=== PATIENT | male | born 1940 | race Caucasian/White ===

== ENCOUNTER 2019-09-18 14:47 | Inpatient (IN) | payer OTHER, SELFPAY ==
[2019-09-18] VITALS (11 sets, daily range): BP systolic 109–118; BP diastolic 62–77; PULSE 61–71; RESP 14–20; TEMP 36.2–36.3; O2SAT 95–99; BMI 41.0; BMI 41.2
--- NOTE | ~2019-09-18 | XR_ITS ---
SMALL BOWEL SERIES ONLY INDICATION: GI bleed TECHNIQUE: Serial plain films and fluoroscopic spot films are performed following oral demonstration of thin barium. COMPARISON: CT dated 11/15/2010 FINDINGS: Barium was followed sequentially through the small bowel. There is a large amount of retain ed debris in the stomach. No obstruction. The mucosal pattern is unremarkable. No evidence for stric ture, polyp, diverticula or obstruction of flow of contrast. Transit time is normal. IMPRESSION: 1: Normal small bowel series. Reviewed, dictated and finalized at location A. E STRAIGHTENER
--- NOTE | ~2019-09-18 | XR_ITS ---
EXAMINATION: XR chest 2V DATE: 09/18/2019 15:33 INDICATION: Intermittent chest pain. Dizziness. TECHNIQUE: Frontal and lateral views of the chest were obtained on 3 radiographs. COMPARISON: Chest 2 views 01/09/2017 FINDINGS: Calcified left lung nodules and calcified left hilar and mediastinal lymph nodes are consis tent with old granulomatous disease. No pleural effusion or pneumothorax. Cardiomegaly is noted. Ther e is a left chest pacer with single lead in right ventricle. IMPRESSION: 1. Cardiomegaly. Reviewed, dictated and finalized at location B. NIC PREPARATION TECHNICIAN IMPRESSION: 1. Cardiomegaly.
--- NOTE | 2019-09-18 15:06 | ECG_ITS ---
Measurements Intervals [place] Rate: 60 P: FL: 0 QRS: -62 QRSD: 178 T: 86 QT: 482 QTc: 483 Interpretive Statements ELECTRONIC VENTRICULAR PACEMAKER BASELINE ARTIFACT- I, III, AVL NO FURTHER INTERPRETATION IS POSSIBLE ATYPICAL ECG Electronically Signed On 09-18-2019 16:00:53 PUBLIC ADDRESS TECHNICIAN by Karthik Hodges D.O.
[2019-09-18 15:25] LABS: Basophils Percent Auto 0.4 % (0.2-1.2); Eosinophils Absolute Auto 0.1 K/mm3 (0-0.3); Eosinophils Percent Auto 0.9 % (0-4.4); Hematocrit 24.3 % (42.0-52.0); Hemoglobin 7.9 g/dL (14.0-18.0); Immature Granulocyte Absolute 0.09 K/mm3 (0.00-0.031); Immature Granulocyte Percent A 0.9 % (0-0.5); Lymphocytes Absolute Auto 0.75 K/mm3 (0.9-3.2); Lymphocytes Percent Auto 7.6 % (18.3-44.2); Mean Corpuscular HGB Conc 32.5 g/dl (32-36); Mean Corpuscular Hemoglobin 32.2 pg (26-34); Mean Corpuscular Volume 99.2 fl (80-100); Mean Platelet Volume 11.4 fl (7.4-10.4); Monocytes Percent Auto 10.2 % (2.6-8.5); Neutrophils Absolute Auto 7.9 K/mm3 (1.3-6.7); Platelet Count Result 143 k/mm3 (150-375); Red Blood Count 2.45 M/mm3 (4.6-6.20); Red Cell Distribution Width 14.9 % (11.5-14.5); White Blood Count 9.9 K/mm3 (4.5-10.0)
[2019-09-18 15:38] LABS: INR 1.6; Prothrombin Time 18.4 Seconds (11.1-14.7)
[2019-09-18 15:39] LABS: Alanine Aminotransferase 16 U/L (4-50); Albumin Level 3.6 g/dL (3.5-5.1); Alkaline Phosphatase 66 U/L (38-126); Aspartate Amino Transferase 26 U/L (17-59); Bilirubin,Total 0.4 mg/dL (0.2-1.3); Blood Urea Nitrogen 34 mg/dL (9-20); Calcium 8.4 mg/dL (8.4-10.2); Carbon Dioxide 23 mmol/L (22-30); Chloride 100 mmol/L (98-107); Estimated CRCL calculation 79 ml/min; Estimated Glomerular Filt Rate > 60; Glucose 96 mg/dL (75-110); Lipase 98 U/L (23-300); Partial Thromboplastin Time 44.6 SECONDS (22.3-36.8); Potassium 4.4 mmol/L (3.4-5.0); Sodium 132 mmol/L (137-145)
[2019-09-18 15:50] LABS: NT Pro B Type Natriuretic Pept 451 PG/ML (5-100); Troponin I 0.014 ng/mL (0.000-0.034)
--- NOTE | 2019-09-18 16:32 | ED.GENADULT ---
HPI - General Adult General Chief complaint: Chest Pain Stated complaint: CP Time Seen by Provider: 09/18/19 14:59 Source: patient, family and old records reviewed Mode of arrival: ambulatory Limitations: no limitations History of Present Illness HPI narrative: Patient is a 79-year-old male who presents with for evaluation of having fatigue and shortness of breath over the last month that is progressively worsened and noting that over the last 2 days he has had heaviness of the chest that occurs with activity and improves with rest patient with cardiac history followed by cardiology at [facility] patient also notes that he has had a GI bleed in the past patient denies any fever chills nausea vomiting or URI symptoms aside from some light rhinorrhea which she attributes to allergies as does his . On arrival patient denying any pain. Patient has not taken anything for his symptoms. Related Data Allergies Allergy/AdvReac Type Severity Reaction Status Date / Time Penicillins Allergy Unknown Verified 09/17/18 08:08 Review of Systems Review of Systems: Narrative: CONSTITUTIONAL: Denies fever, chills, or sweats. Positive for fatigue EYES: Denies redness, or discharge. ENT: Denies rhinorrhea, congestion, sore throat, or otalgia. CARDIOVASCULAR: Denies chest pain. Positive for edema RESPIRATORY: Denies cough or dyspnea. GASTROINTESTINAL: Denies abdominal pain, nausea, vomiting, or diarrhea. Denies rectal bleeding or melena GENITOURINARY: Denies dysuria or hematuria. SKIN: Denies rash or wounds MUSCULOSKELETAL: Denies back pain, joint pain, or myalgia. NEUROLOGIC: Denies headache, dizziness, or weakness. [facility] Past Medical History Medical History (Updated 09/18/19 @ 16:47 by Jean Claude Woods PA-C) Hypertension Surgical History Surgical History Hx of CABG Family History Family History Sibling Cerebrovascular accident Malignant neoplasm of prostate Acute myocardial infarction Family history of malignant neoplasm of brain Patient's sister is Patient's brother is Mother Family history of diabetes mellitus in first degree relative Family history of congestive heart failure Patient's mother is Father Acute myocardial infarction Patient's father is Social History Social History Smoking status: Never smoker Alcohol intake: never Exam Narrative: Exam Narrative: GENERAL: Well-appearing, obese, and in no acute distress. HEAD: Normocephalic, atraumatic. EYES: PERRLA and EOMI. ENT: Nares clear, no rhinorrhea or epistaxis. Mucous membranes moist. Oropharynx without tonsillar hypertrophy exudate or other lesions. CHEST: Clear to auscultation. No respiratory distress. No wheezes rales or rhonchi HEART: Regular rate and rhythm. Patient with murmur. Normal peripheral pulses. ABDOMEN: Soft, nontender, nondistended. Guaiac positive EXTREMITIES: Normal range of motion. No edema. SKIN: Warm, dry, no rash. NEURO: No focal deficits. Alert and oriented x3. PSYCH: Normal mood and affect. Course Course Emergency Course: Patient in the room at this time in no distress agreeing to stay in hospital aware of case findings treatment plan and diagnosis Consultations Consultation #1: Discussed case with hospitalist Marlena who is agreed to accept the patient Discussed case with Dr. Gar key operator who will consult on patient would like the patient to receive 1 unit of blood Discussed case with Sujey Leonard nurse practitioner with cardiology who agrees to consult on patient Vital Signs Vital signs: Vital Signs Pulse Rate 63 09/18/19 14:49 Respiratory Rate 18 09/18/19 14:49 Blood Pressure 114/67 09/18/19 14:49 Pulse Oximetry 95 09/18/19 14:49 Pulse
--- NOTE | 2019-09-18 18:59 | ADMGEN ---
This patient, Thee Amanda, was admitted to IMU Room 206-02. Patient/family oriented to hospital policies and general routines including ID bracelet, bed and alarms, visiting hours, pain management, procedures, bathroom and other care routines, personal items, smoking policy, room service/diet, and visiting hours. Valuables list has been completed. Information on how to activate the Rapid Response Team has been discussed. Patient/Family are encouraged to report perceived risks to care and to ask questions if they do not understand what they are told or what they should do.
[2019-09-18 19:48] LABS: Troponin I 0.016 ng/mL (0.000-0.034)
[2019-09-18] MEDS: PANTOPRAZOLE SODIUM IV 40 MG VIAL IV PUSH (20:25)
[2019-09-18 21:37] LABS: Troponin I 0.018 ng/mL (0.000-0.034)
[2019-09-18] MEDS: SODIUM CHLORIDE 0.9% IV 250 ML 30 ML IV CONT (22:06)
[2019-09-18] MEDS: TUBING, BLOOD PLUM PUMP TUBING 1 EACH XX (22:06)
[2019-09-19] VITALS (23 sets, daily range): BP systolic 97–124; BP diastolic 59–70; PULSE 61–71; RESP 14–20; TEMP 36–36.6; O2SAT 93–99
[2019-09-19 04:51] LABS: Basophils Percent Auto 0.3 % (0.2-1.2); Eosinophils Absolute Auto 0.3 K/mm3 (0-0.3); Eosinophils Percent Auto 4.2 % (0-4.4); Hematocrit 24.1 % (42.0-52.0); Hemoglobin 7.7 g/dL (14.0-18.0); Immature Granulocyte Absolute 0.05 K/mm3 (0.00-0.031); Immature Granulocyte Percent A 0.8 % (0-0.5); Lymphocytes Absolute Auto 0.79 K/mm3 (0.9-3.2); Lymphocytes Percent Auto 12.4 % (18.3-44.2); Mean Corpuscular Hemoglobin 31.2 pg (26-34); Mean Corpuscular Volume 97.6 fl (80-100); Monocytes Absolute Auto 0.7 K/mm3 (0.1-0.6); Neutrophils Absolute Auto 4.6 K/mm3 (1.3-6.7); Neutrophils Percent Auto 71.3 % (45.5-73.1); Platelet Count Result 131 k/mm3 (150-375); Red Blood Count 2.47 M/mm3 (4.6-6.20); Red Cell Distribution Width 15.6 % (11.5-14.5); White Blood Count 6.4 K/mm3 (4.5-10.0)
[2019-09-19 05:05] LABS: Blood Urea Nitrogen 24 mg/dL (9-20); Calcium 8.4 mg/dL (8.4-10.2); Carbon Dioxide 24 mmol/L (22-30); Chloride 101 mmol/L (98-107); Estimated CRCL calculation 99 ml/min; Estimated Glomerular Filt Rate > 60; Glucose 88 mg/dL (75-110); Potassium 3.9 mmol/L (3.4-5.0); Sodium 132 mmol/L (137-145)
--- NOTE | 2019-09-19 08:27 | WPDGICN ---
Assessment and Plan Additional Plan This is a 79-year-old white male patient I am asked to see for GI bleeding. Patient in usual state of health till the last 2-3 days when he began to have somewhat lightheadedness. He became more weak. He noticed dark stools. He denies abdominal pain. Denies any obvious blood in his stools but states they became blackish. He began to have chest pain in this prompted him to go to the emergency room. In the ER he was noted to have a low hemoglobin and Hemoccult-positive stools. Past medical history is significant for atherosclerotic heart disease. He has a history of atrial fibrillation. He is on chronic anticoagulation with Xarelto. He has stable congestive heart failure. Last colonoscopy was approximately 4 years ago. Family history is noncontributory. There is no colon or rectal disease. Current medications include Lasix 20 mg p.o. daily. Lisinopril 20 mg p.o. daily. Metoprolol 20 mg p.o. daily. Xarelto. Rosuvastatin. Terazosin. He has no stated drug allergies. Physical exam reveals him to be alert periods comfortable at rest. HEENT exam unremarkable. He is anicteric. Lungs are clear to auscultation and percussion. Heart is without murmur or extra sounds. Abdominal exam somewhat obese. Bowel sounds are present. Soft nontender with no organomegaly. Stool was found to be Hemoccult-positive in the emergency room. Laboratory tests reveal hemoglobin 7.9 in the emergency room. After transfusion of 1 unit of PRBCs. Hemoglobin 7.7 this morning. Impression 1. GI blood loss anemia. Patient has melena by description. Suspicious for upper GI bleeding worsened by anticoagulation. No active bleeding at the present. 2. Melena. This suggest upper GI blood loss. Ulcer disease is suspected. 3. Xarelto anticoagulation. 4. Atrial fibrillation. 5. Congestive heart failure. 6. Obesity. Plan is to slowly transfuse patient to a stable hemoglobin. Xarelto and other anticoagulation will be held. Hemoglobin will be monitored. Patient will be started on Protonix. Plan for an EGD. Anticipate performing EGD on Saturday. After Xarelto has been held. And hemoglobin stabilized with transfusion. GI Consult Note Consult date/time: 09/19/19 08:27 HPI: Thee Lynn Amanda is a 79 year old male [facility] Past Medical History Medical History (Updated 09/18/19 @ 16:47 by Jean Claude Woods PA-C) Hypertension Surgical History Surgical History Hx of CABG Family History Family History Sibling Cerebrovascular accident Malignant neoplasm of prostate Acute myocardial infarction Family history of malignant neoplasm of brain Patient's sister is Patient's brother is Mother Family history of diabetes mellitus in first degree relative Family history of congestive heart failure Patient's mother is Father Acute myocardial infarction Patient's father is Social History Social History Smoking status: Never smoker Alcohol intake: never Substance use: never Substance use type: does not use Spiritual care concerns: No Agree to blood products: Yes Meds Home Medications and Allergies Home Medications Medication Instructions Recorded Confirmed Type furosemide 20 mg PO DAILY 09/18/19 09/18/19 History lisinopril 20 mg PO DAILY 09/18/19 09/18/19 History metoprolol succinate 25 mg PO DAILY 09/18/19 09/18/19 History rivaroxaban [Xarelto] 20 mg PO HS 09/18/19 09/18/19 History rosuvastatin 40 mg PO DAILY 09/18/19 09/18/19 History terazosin 10 mg PO DAILY 09/18/19 09/18/19 History tolterodine 2 mg PO Q12H 09/19/19 09/19/19 History Allergies Allergy/AdvReac Type Severity Reaction Status Date / Time Penicillins Allergy Unknown Verified 09/17/18 08:08
[2019-09-19] MEDS: FUROSEMIDE 20 MG TABLET PO (10:00)
[2019-09-19] MEDS: ROSUVASTATIN 10 MG TABLET 40 MG PO (10:00)
[2019-09-19] MEDS: TERAZOSIN HCL 5 MG CAPSULE 10 MG PO (10:01)
[2019-09-19] MEDS: lisinopriL 20 MG TABLET PO (10:01)
[2019-09-19] MEDS: PANTOPRAZOLE SODIUM IV 40 MG VIAL IV PUSH ×2 (10:02→22:28)
[2019-09-19] MEDS: TOLTERODINE TARTRATE 2 MG TABLET PO ×2 (10:08→22:34)
[2019-09-19] MEDS: METOPROLOL SUCCINATE EXT REL 25 MG TABCR PO (10:08)
[2019-09-19] MEDS: SODIUM CHLORIDE 0.9% IV 250 ML 30 ML IV CONT (10:52)
[2019-09-19] MEDS: TUBING, BLOOD PLUM PUMP TUBING 1 EACH XX (10:52)
--- NOTE | 2019-09-19 12:50 | PM.CNCAR ---
Assessment and Plan Assessment and plan (1) Cardiomyopathy: Code(s): I42.9 - Cardiomyopathy, unspecified Status: Acute Assessment and Plan: EF 45 50%. Compensated. Will order 2D echocardiogram Doppler (2) Pacemaker: Code(s): Z95.0 - Presence of cardiac pacemaker Status: Acute Assessment and Plan: Predominantly V paced (3) Chronic atrial flutter: Code(s): I48.92 - Unspecified atrial flutter Status: Acute Assessment and Plan: Previously on anticoagulation. Will hold Xarelto for now. GI workup in progress. (4) Chronic anticoagulation: Code(s): Z79.01 - lobsterman (current) use of anticoagulants Status: Acute Assessment and Plan: As above, hold Xarelto (5) Coronary artery disease: Code(s): I25.10 - Atherosclerotic heart disease of [place] coronary artery without angina pectoris Status: Acute Assessment and Plan: Status post complex PCI to the LAD with residual PDA disease. Certainly his chest pain and shortness of breath sound anginal but worsened probably by anemia (6) Chest pain: Code(s): R07.9 - Chest pain, unspecified Status: Acute Assessment and Plan: As detailed above, sounds anginal but underlying trigger is likely severe anemia/GI bleed. Obviously if he has continued symptoms despite transfusion and GI evaluation, ischemic workup can be performed as an outpatient (7) Gastrointestinal bleed: Code(s): K92.2 - Gastrointestinal hemorrhage, unspecified Status: Acute Assessment and Plan: Melanotic stools. Likely upper source. GI following. Scope Saturday (8) Anemia: Code(s): D64.9 - Anemia, unspecified Status: Acute Assessment and Plan: Currently getting transfused. Diuresis as needed after transfusions History of Present Illness History of Present Illness Consult date/time: 09/19/19 12:50 Requesting physician: Jean Claude Woods PA-C Consult reason: chest pain Reason For Visit: GI Bleed/Anemia/Chest Pain Narrative: Date of service: 09/19/2019 History patient is a 79 normal male patient of Dr. Allan's to has a history of chronic atrial flutter, Biotronik pacemaker implantation for sick sinus syndrome and chronic bradycardia, chronic anticoagulation, coronary disease with LAD stent placement in January 2016 with some residual PDA disease which is being treated medically. He also has a mild cardiomyopathy with ejection fraction 45-50%. He presented to the hospital because of some worsening shortness of breath, chest tightness as well as lightheadedness. Symptoms feel like they did prior to his stent placement. He states that these symptoms occurred about 2 days ago. He would climb a flight of stairs and have the chest tightness which would last for about 15-20 minutes at a time. It did not radiate into his arm back neck or jaw. Again he did have some associated shortness of breath. He has had no syncope, paroxysmal nocturnal dyspnea, orthopnea or palpitations. He has had some ankle edema. Upon presentation to the emergency department he was noted being AV paced rhythm. Troponins have been negative but his hemoglobin has been found to be low at a level of 7.7. He has received 1 unit of blood without significant improvement. He states that he has been having black stools for the past couple of days also. He is seen by Dr. Horner with a plan for upper endoscopy on Saturday Review of Systems Review of Systems: All systems reviewed & are unremarkable except as noted in HPI and below Constitutional: Constitutional: Reports weakness Eyes: Eyes: Denies blurry vision ENT: Reports Normal hearing present and Denies epistaxis Cardiovascular: Cardiovascular: Reports chest pain and Reports leg edema Respiratory: Respiratory: Reports dyspnea on exertion Gastrointestinal: Gastrointestinal: Reports melena Genitourinary: Genitourinary: Denies hematuria Musculoskeletal: M
--- NOTE | 2019-09-19 15:12 | P.PNIM_ITS ---
Progress Note: A&P Assessment and Plan (1) Gastrointestinal bleed: Qualifiers: GI bleed type/associated pathology: unspecified gastrointestinal hemorrhage type Qualified Code(s): K92.2 - Gastrointestinal hemorrhage, unspecified Code(s): K92.2 - Gastrointestinal hemorrhage, unspecified Status: Acute Assessment and Plan: * UGI vs small bowel vs right colon source * continue to hold Xarelto * F/u h/h * EGD planned for 09/21. (2) Anemia: Qualifiers: Other causes of anemia: acute posthemorrhagic Anemia type: other cause Qualified Code(s): D62 - Acute posthemorrhagic anemia Code(s): D64.9 - Anemia, unspecified Status: Acute Assessment and Plan: * continue to monitor * transfuse as needed for hgb below 7 (3) Chest pain: Qualifiers: Chest pain type: unspecified Qualified Code(s): R07.9 - Chest pain, unspecified Code(s): R07.9 - Chest pain, unspecified Status: Acute Assessment and Plan: * likely due to acute UGI bleed * resolved (4) Coronary artery disease: Qualifiers: Coronary Disease-Associated Artery/Lesion type: [place] artery [place] vs. transplanted heart: [place] heart Associated angina: without angina Qualified Code(s): I25.10 - Atherosclerotic heart disease of [place] coronary artery without angina pectoris Code(s): I25.10 - Atherosclerotic heart disease of [place] coronary artery without angina pectoris Status: Acute Assessment and Plan: * currently w/o sx's (5) Chronic atrial flutter: Code(s): I48.92 - Unspecified atrial flutter Status: Acute Assessment and Plan: * rate controlled * no anticoagulation due to GI bleed (6) Pacemaker: Code(s): Z95.0 - Presence of cardiac pacemaker Status: Acute Assessment and Plan: * pacing (7) Chronic anticoagulation: Code(s): Z79.01 - snf (current) use of anticoagulants Status: Acute Assessment and Plan: * held due to GI bleed (8) Sick sinus syndrome: Code(s): I49.5 - Sick sinus syndrome Status: Acute Assessment and Plan: * pacer functioning (9) Cardiomyopathy: Qualifiers: Cardiomyopathy type: ischemic Qualified Code(s): I25.5 - Ischemic cardiomyopathy Code(s): I42.9 - Cardiomyopathy, unspecified Status: Acute Assessment and Plan: * Continue regimen Subjective Date/time seen: 09/19/19 15:12 Interval history: 79 y/o male on chronic Xarelto therapy for atrial flutter was admitted 09/18 due to melena and anemia and chest pain. Feels much better today. No chest pain or sob. Tolerating clear liquids. Review of Systems 2 Review of Systems: All systems reviewed & are unremarkable except as noted in HPI and below Exam Narrative: Exam Narrative: HEENT: EOMI, PERRL, pharyngeal mucosa pink and intact NECK: No JVD CHEST: Clear to auscultation. Normal effort. HEART: NL S1/S2, regular, no murmur ABDOMEN: BS+, soft, nontender, no mass, no bruits EXTREMITIES: No cyanosis, edema, or clubbing NEUROLOGIC: CN intact and symmetric to inspection. MUSCULOSKELETAL: Tone and strength symmetric. PSYCH: Alert. Oriented to person, place, and time. Objective Data Vital Signs Vital Signs: Vital Signs - 24 hr 09/18/19 17:53 09/18/19 18:46 09/18/19 19:15 Temperature 97.3 F L Pulse Rate 64 64 71 Respiratory Rate 16 1
--- NOTE | 2019-09-19 15:12 | PM.IMPN ---
Progress Note: A&P Assessment and Plan (1) Gastrointestinal bleed: Qualifiers: GI bleed type/associated pathology: unspecified gastrointestinal hemorrhage type Qualified Code(s): K92.2 - Gastrointestinal hemorrhage, unspecified Code(s): K92.2 - Gastrointestinal hemorrhage, unspecified Status: Acute Assessment and Plan: UGI vs small bowel vs right colon source continue to hold Xarelto F/u h/h EGD planned for 09/21. (2) Anemia: Qualifiers: Other causes of anemia: acute posthemorrhagic Anemia type: other cause Qualified Code(s): D62 - Acute posthemorrhagic anemia Code(s): D64.9 - Anemia, unspecified Status: Acute Assessment and Plan: continue to monitor transfuse as needed for hgb below 7 (3) Chest pain: Qualifiers: Chest pain type: unspecified Qualified Code(s): R07.9 - Chest pain, unspecified Code(s): R07.9 - Chest pain, unspecified Status: Acute Assessment and Plan: likely due to acute UGI bleed resolved (4) Coronary artery disease: Qualifiers: Coronary Disease-Associated Artery/Lesion type: [place] artery [place] vs. transplanted heart: [place] heart Associated angina: without angina Qualified Code(s): I25.10 - Atherosclerotic heart disease of [place] coronary artery without angina pectoris Code(s): I25.10 - Atherosclerotic heart disease of [place] coronary artery without angina pectoris Status: Acute Assessment and Plan: currently w/o sx's (5) Chronic atrial flutter: Code(s): I48.92 - Unspecified atrial flutter Status: Acute Assessment and Plan: rate controlled no anticoagulation due to GI bleed (6) Pacemaker: Code(s): Z95.0 - Presence of cardiac pacemaker Status: Acute Assessment and Plan: pacing (7) Chronic anticoagulation: Code(s): Z79.01 - extermination inspector (current) use of anticoagulants Status: Acute Assessment and Plan: held due to GI bleed (8) Sick sinus syndrome: Code(s): I49.5 - Sick sinus syndrome Status: Acute Assessment and Plan: pacer functioning (9) Cardiomyopathy: Qualifiers: Cardiomyopathy type: ischemic Qualified Code(s): I25.5 - Ischemic cardiomyopathy Code(s): I42.9 - Cardiomyopathy, unspecified Status: Acute Assessment and Plan: Continue regimen Subjective Date/time seen: 09/19/19 15:12 Interval history: 79 y/o male on chronic Xarelto therapy for atrial flutter was admitted 09/18 due to melena and anemia and chest pain. Feels much better today. No chest pain or sob. Tolerating clear liquids. Review of Systems Review of Systems: All systems reviewed & are unremarkable except as noted in HPI and below Exam Narrative: Exam Narrative: HEENT: EOMI, PERRL, pharyngeal mucosa pink and intact NECK: No JVD CHEST: Clear to auscultation. Normal effort. HEART: NL S1/S2, regular, no murmur ABDOMEN: BS+, soft, nontender, no mass, no bruits EXTREMITIES: No cyanosis, edema, or clubbing NEUROLOGIC: CN intact and symmetric to inspection. MUSCULOSKELETAL: Tone and strength symmetric. PSYCH: Alert. Oriented to person, place, and time. Objective Data Vital Signs Vital Signs: Vital Signs - 24 hr 09/18/19 17:53 09/18/19 18:46 09/18/19 19:15 Temperature 97.3 F L Pulse Rate 64 64 71 Respiratory Rate 16 16 20 Blood Pressure 109/72 111/77 118/72 Pulse Oximetry 96 99 09/18/19 20:00 09/18/19 21:57 09/18/19 22:00 Temperature 97.3 F L Pulse Rate 63 62 63 Respiratory Rate 16 Blood Pressure 113/66 Pulse Oximetry 97 09/18/19 22:14 09/18/19 22:45 09/18/19 23:14 Temperature 97.4 F L 97.1 F L Pulse Rate 62 62 61 Respiratory Rate 14 16 16 Blood Pressure 117/62 113/69 Pulse Oximetry 97 95 99 09/19/19 00:00 09/19/19 00:14 09/19/19 01:47 Temperature 97.2 F L Pulse Rate 63 62 63 Respiratory Rate 20 14 Blood Pressure 112
--- NOTE | 2019-09-19 16:05 | HP_ITS ---
DATE OF SERVICE: 09/19/2019 TIME: 0530. CHIEF COMPLAINT: Chest pain. HISTORY OF PRESENT ILLNESS: The patient is a pleasant 79-year-old male with a past medical history of multivessel coronary artery disease, chronic anticoagulation due to atrial fibrillation, and chronic anemia, who presented to the ER with chest pain, intermittent shortness of breath, and dizziness. Source of information is past medical records, ER records, and the patient who is a fair to poor historian. The patient has been having fatigue and shortness of breath intermittently over the last month. His symptoms have progressively worsened, but are exacerbated by exertion. He reports that he had upper chest heaviness and pressure when climbing the 6 or so stairs to enter his house in the last 2 days. The discomfort is described as a heaviness and is moderate in intensity. The symptoms usually improve with rest. He denies any palpitations. He has not noticed any lower extremity swelling or orthopnea. He had his last bowel movement 2 days ago and it was black in color, consistent with his prior history of GI bleeds. His last colonoscopy was in 2016 performed for cancer screening and demonstrated an ascending colon polyp, transverse colon polyp, and diverticulosis and internal hemorrhoids. He has had a colonoscopy in 2012 and that was negative for polyps. The patient denies any heartburn symptoms, but has been having a lot of belching and what sounds like dyspepsia. He is not usually on PPI therapy at home. He denies any recent NSAID use. He has not had any fevers, chills, or upper respiratory symptoms aside from some rhinorrhea. He has not had any recurrent symptoms since he was admitted to the hospital. He did receive 1 unit of blood transfusion when he arrived to the intermediate unit for a hemoglobin of 7.9. According to the patient's past labs, his baseline hemoglobin is around 10. The patient reports chronic urinary incontinence, but denies any changes in urinary frequency or dysuria. The patient's stool was reportedly guaiac-positive in the ER. REVIEW OF SYSTEMS: Except as documented, all systems reviewed and are negative. PAST MEDICAL HISTORY: 1. Multivessel coronary artery disease with last cardiac catheterization in January 2017 demonstrating heavily calcified coronary arteries with diffuse disease, 95% stenosis, proximal LAD with 60% stenosis of the mid and distal LAD and mid circumflex and 67% stenosis of posterior descending artery with left ventricular dysfunction with severe anterolateral and apical hypokinesis with EF of 40% to 45% with 4+ mitral valve regurgitation, thought may be catheter-induced with recommended arthrectomy and stenting for which the patient was evaluated at [facility] as outpatient. 2. Chronic atrial fibrillation, on chronic anticoagulation with Xarelto. History of cardiac ablation in December 2009 and in 2006. 3. Mild ischemic cardiomyopathy with EF as discussed above. 4. Obstructive sleep apnea, with home CPAP use. 5. Hyperlipidemia. 6. Pacemaker implantation due to bradycardia. 7. Colonoscopy with polypectomy as discussed above. 8. Prostate cancer, status post prostate resection with chronic urinary incontinence. Treated with 38 radiation treatments since 2010. 9. History of thrombocytopenia. 10. Eczema. 11. Varicose veins of bilateral lower extremities. 12. Left total knee arthroplasty, March 2010. 13. Essential hypertension. 14. Abdominal hernia without surgical repair. 15. Right total knee arthroplasty, June 2010. 16. Tonsillectomy in 1999. 17. Bilateral cataract extraction and left eye laser surgery. SOCIAL HISTORY: The patient lives with his of over 40 years. The patient has 3 biologic children. One was killed in a motor vehicle accident. The
[2019-09-19 16:11] LABS: Hematocrit 26.9 % (42.0-52.0); Hemoglobin 8.8 g/dL (14.0-18.0)
[2019-09-20] VITALS (10 sets, daily range): BP systolic 95–106; BP diastolic 60–67; PULSE 61–80; RESP 14–20; TEMP 36.2–36.8; O2SAT 94–99
--- NOTE | 2019-09-20 | ECHO_ITS ---
Patient Info Name: Thee Amanda Age: 79 years : 1940 Gender: Male Ht: 68 in Wt: 270 lbs BSA: 2.48 m2 HR: 64 bpm BP: 128 / 67 mmHg Heart Rhythm: Paced Technical Quality: Good Exam Date: 09/20/2019 9:35 AM Exam Location: [facility] Patient Status: Inpatient Admit Date: 09/19/2019 Staff Ordering Physician: Ethan Spicer MD Carpenter Helper Maintenance: Bethany Salinas RDCS Attending Provider: Miko Ford MD Referring Physician: Nayan LEON; Exam Type: CA echo dop color flow w con Study Info Complete two-dimensional, color flow and Doppler transthoracic echocardiogram is performed. Summary 1. Left ventricular chamber dimension is mildly enlarged. 2. Left ventricular systolic function is normal, estimated at 55-60%. 3. There is mildly increased left ventricular wall thickness. 4. The left ventricular diastolic function is abnormal. 5. Right ventricular chamber dimension is severely enlarged. 6. Right atrial chamber dimension is severely enlarged. 7. Left atrial chamber dimension is severely enlarged. 8. There is moderate aortic valve regurgitation. 9. There is moderate aortic valve calcification. 10. There is mild mitral valve regurgitation. 11. There is mild to moderate tricuspid valve regurgitation. 12. Moderate pulmonary hypertension, estimated pulmonary arterial systolic pressure is 57 mmHg. Left Ventricle Left ventricular chamber dimension is mildly enlarged. Left ventricular systolic function is normal, estimated at 55-60%. There is mildly increased left ventricular wall thickness. The left ventricular diastolic function is abnormal. Right Ventricle Right ventricular chamber dimension is severely enlarged. Right ventricular systolic function is normal. Left Atria Left atrial chamber dimension is severely enlarged. Right Atria Right atrial chamber dimension is severely enlarged. Atrial Septum Intact interatrial septum visualized by color flow imaging. Aortic Valve The aortic valve is trileaflet. There is moderate aortic valve sclerosis. There is no aortic valve stenosis. There is moderate aortic valve regurgitation. There is moderate aortic valve calcification. Pulmonic Valve The pulmonic valve is normal. There is no pulmonic valve stenosis. There is trace pulmonic regurgitation. Mitral Valve The mitral valve has normal leaflets. There is no mitral valve stenosis. There is mild mitral valve regurgitation. Tricuspid Valve The tricuspid valve leaflets are normal. There is no significant tricuspid valve stenosis. There is mild to moderate tricuspid valve regurgitation. Moderate pulmonary hypertension, estimated pulmonary arterial systolic pressure is 57 mmHg. Pericardium/Pleural The pericardium appears normal. There is trivial pericardial effusion. Inferior Vena Cava Dilated inferior vena cava with >50% collapse upon inspiration consistent with elevated right atrial pressure, 15 mmHg. Aorta The aortic root size at the sinus of Valsalva is normal. Left Ventricular Outflow Tract Name Value Normal LVOT 2D LVOT Diameter 2.14 cm LVOT Doppler LVOT
[2019-09-20 05:16] LABS: Blood Urea Nitrogen 17 mg/dL (9-20); Calcium 8.4 mg/dL (8.4-10.2); Carbon Dioxide 28 mmol/L (22-30); Chloride 103 mmol/L (98-107); Estimated CRCL calculation 85 ml/min; Estimated Glomerular Filt Rate > 60; Glucose 95 mg/dL (75-110); Potassium 4.2 mmol/L (3.4-5.0); Sodium 138 mmol/L (137-145)
[2019-09-20 05:31] LABS: Hemoglobin 8.9 g/dL (14.0-18.0); Mean Corpuscular Hemoglobin 31.7 pg (26-34); Mean Corpuscular Volume 96.1 fl (80-100); Mean Platelet Volume 12.2 fl (7.4-10.4); Platelet Count Result 145 k/mm3 (150-375); Red Blood Count 2.81 M/mm3 (4.6-6.20); Red Cell Distribution Width 15.9 % (11.5-14.5); White Blood Count 7.2 K/mm3 (4.5-10.0)
--- NOTE | 2019-09-20 07:50 | WPDGIPROGNO ---
Progress Note: A&P Additional Plan pt comfortable this am no additional bleeding is evident, PE: alert, VSS anicteric, abdomen obese soft, and nontender5, Labs: Hgb 8.9, stable after 2 units PRBCs, Impression: 1. GI bleeding,. resultant blood loss anemia, etiology unclear, will plan for colonoscopy and EGD in am, 2. Xarleto anticoagluation, on hold. will hold till after gi bleeding evaluation, 3. ANABEL, 4. pacemaker, 5. atrial fib. 6.obesity. Plan for GI endoscopy in am, hold anticoagulation, continue PPI, follow hct. Subjective Date/time seen: 09/20/19 07:50 Objective Data Vital Signs Vital Signs: Vital Signs - 24 hr 09/19/19 08:00 09/19/19 08:01 09/19/19 10:00 Temperature 36.4 C L Pulse Rate 67 62 64 Respiratory Rate 14 Blood Pressure 124/70 Pulse Oximetry 93 09/19/19 10:08 09/19/19 11:08 09/19/19 11:23 Temperature 36.3 C L 36.1 C L Pulse Rate 64 62 61 Respiratory Rate 16 17 Blood Pressure 110/61 106/60 Pulse Oximetry 98 99 09/19/19 12:00 09/19/19 12:23 09/19/19 12:56 Temperature 36.2 C L 36.0 C L Pulse Rate 62 63 65 Respiratory Rate 16 16 Blood Pressure 101/61 113/64 Pulse Oximetry 96 98 09/19/19 13:23 09/19/19 14:00 09/19/19 16:00 Temperature 36.2 C L 36.3 C L Pulse Rate 67 71 64 Respiratory Rate 18 20 Blood Pressure 107/62 97/59 L Pulse Oximetry 97 96 09/19/19 18:00 09/19/19 19:41 09/19/19 20:00 Temperature 36.6 C Pulse Rate 65 62 62 Respiratory Rate 20 20 Blood Pressure 102/64 Pulse Oximetry 95 95 09/19/19 21:15 09/19/19 22:00 09/20/19 00:00 Temperature 36.8 C Pulse Rate 65 62 Respiratory Rate 20 Blood Pressure 106/64 Pulse Oximetry 96 95 09/20/19 02:00 09/20/19 03:10 09/20/19 04:00 Temperature 36.6 C Pulse Rate 65 80 80 Respiratory Rate 14 18 Blood Pressure 103/67 Pulse Oximetry 94 99 09/20/19 06:00 Temperature Pulse Rate 70 Respiratory Rate Blood Pressure Pulse Oximetry Intake/Output Intake/Output: Intake & Output 09/17/19 09/18/19 09/19/19 09/20/19 23:59 23:59 23:59 23:59 Intake Total 0 2267 Output Total 591 6149 582 Balance -329 -245 -160 Meds/Results Medications: Active Medications Generic Name Dose Route Start Last Admin Trade Name Freq PRN Reason Stop Dose Admin Furosemide 20 mg 09/19/19 09:00 09/19/19 10:00 Lasix Tablet PO 20 mg DAILY TRACY Administration Lisinopril 20 mg 09/19/19 09:00 09/19/19 10:01 Prinivil PO 20 mg DAILY TRACY Administration Metoprolol Succinate 25 mg 09/19/19 09:00 09/19/19 10:08 Toprol Xl PO 25 mg DAILY TRACY Administration Ondansetron HCl 4 mg 09/18/19 16:47 Zofran Inj IV PUSH Q4H PRN Nausea Pantoprazole Sodium 40 mg 09/19/19 09:00 09/19/19 22:28 Protonix Iv IV PUSH 40 mg Q12HR TRACY Administration Rosuvastatin Calcium 40 mg 09/19/19 09:00 09/19/19 10:00 Crestor PO 40 mg DAILY TRACY Administration Terazosin HCl 10 mg 09/19/19 09:00 09/19/19 10:01 Hytrin PO 10/19/19 09:01 10 mg DAILY TRACY Administration Tolterodine Tartrate 2 mg 09/19/19 09:00 09/19/19 22:34 Detrol PO 2 mg Q12HR TRACY Administration Radiology Results: ITS Impressions Chest X-Ray 09/18/19 15:36 IMPRESSION: 1. Cardiomegaly. Labs Labs: Laboratory Results - last 24 hr 09/18/19 09/19/19 09/20/19 16:48 16:07 04:23 WBC 7.2 RBC 2.81 L Hgb 8.8 L 8.9 L Hct 26.9 L 27.0 L MCV 96.1 MCH 31.7 MCHC 33.0 RDW 15.9 H Plt Count 145 L MPV 12.2 H Sodium Potassium Chloride Carbon Dioxide BUN Creatinine Estim Creat Clear Calc Estimated GFR Glucose Calcium Blood Type O Positive Antibody Screen Negative Crossmatch See Detail 09/20/19 04:23 WBC RBC Hgb Hct MCV MCH MCHC RDW Plt Count MPV Sodium 138 Potassium 4.2 Chloride 103 Carbon Dioxide 28 BUN 17 Creatinine 0.80 Es
[2019-09-20] MEDS: PANTOPRAZOLE SODIUM IV 40 MG VIAL IV PUSH ×2 (09:30→21:32)
[2019-09-20] MEDS: ROSUVASTATIN 10 MG TABLET 40 MG PO (09:30)
[2019-09-20] MEDS: TERAZOSIN HCL 5 MG CAPSULE 10 MG PO (09:33)
[2019-09-20] MEDS: TOLTERODINE TARTRATE 2 MG TABLET PO ×2 (09:33→21:33)
[2019-09-20] MEDS: lisinopriL 20 MG TABLET PO (09:33)
[2019-09-20] MEDS: FUROSEMIDE 20 MG TABLET PO (09:36)
[2019-09-20] MEDS: METOPROLOL SUCCINATE EXT REL 25 MG TABCR PO (09:36)
--- NOTE | 2019-09-20 09:39 | P.PNIM_ITS ---
Progress Note: A&P Assessment and Plan (1) Gastrointestinal bleed: Qualifiers: GI bleed type/associated pathology: unspecified gastrointestinal hemorrhage type Qualified Code(s): K92.2 - Gastrointestinal hemorrhage, unspecified Code(s): K92.2 - Gastrointestinal hemorrhage, unspecified Status: Acute Assessment and Plan: * UGI vs small bowel vs right colon source * continue to hold Xarelto * F/u h/h stable thus far * EGD planned for 09/21. (2) Anemia: Qualifiers: Anemia type: other cause Other causes of anemia: acute posthemorrhagic Qualified Code(s): D62 - Acute posthemorrhagic anemia Code(s): D64.9 - Anemia, unspecified Status: Acute Assessment and Plan: * continue to monitor * transfuse as needed for hgb below 7 (3) Chest pain: Qualifiers: Chest pain type: unspecified Qualified Code(s): R07.9 - Chest pain, unspecified Code(s): R07.9 - Chest pain, unspecified Status: Acute Assessment and Plan: * likely due to acute UGI bleed * resolved (4) Coronary artery disease: Qualifiers: Coronary Disease-Associated Artery/Lesion type: [place] artery [place] vs. transplanted heart: [place] heart Associated angina: without angina Qualified Code(s): I25.10 - Atherosclerotic heart disease of [place] coronary artery without angina pectoris Code(s): I25.10 - Atherosclerotic heart disease of [place] coronary artery without angina pectoris Status: Acute Assessment and Plan: * currently w/o sx's (5) Chronic atrial flutter: Code(s): I48.92 - Unspecified atrial flutter Status: Acute Assessment and Plan: * rate controlled * no anticoagulation due to GI bleed (6) Pacemaker: Code(s): Z95.0 - Presence of cardiac pacemaker Status: Acute Assessment and Plan: * pacing (7) Chronic anticoagulation: Code(s): 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 No new c/o. No chest pain or sob. Tolerating clear liquids. Review of Systems Review of Systems: All systems reviewed & are unremarkable except as noted in HPI and below Exam Narrative: Exam Narrative: HEENT: EOMI, PERRL, pharyngeal mucosa pink and intact NECK: No JVD CHEST: Clear to auscultation. Normal effort. HEART: NL S1/S2, regular, no murmur ABDOMEN: BS+, soft, nontender, no mass, no bruits EXTREMITIES: No cyanosis, edema, or clubbing NEUROLOGIC: CN intact and symmetric to inspection. MUSCULOSKELETAL: Tone and strength symmetric. PSYCH: Alert. Oriented to person, place, and time. Objective Data Vital Signs Vital Signs: Vital Signs - 24 hr 09/19/19 10:00 09/19/19 10:08 09/19/19 11:08 Temperature 97.3 F L Pulse Rate 64 64 62 Respiratory Rate
--- NOTE | 2019-09-20 09:39 | PM.IMPN ---
Progress Note: A&P Assessment and Plan (1) Gastrointestinal bleed: Qualifiers: GI bleed type/associated pathology: unspecified gastrointestinal hemorrhage type Qualified Code(s): K92.2 - Gastrointestinal hemorrhage, unspecified Code(s): K92.2 - Gastrointestinal hemorrhage, unspecified Status: Acute Assessment and Plan: UGI vs small bowel vs right colon source continue to hold Xarelto F/u h/h stable thus far EGD planned for 09/21. (2) Anemia: Qualifiers: Anemia type: other cause Other causes of anemia: acute posthemorrhagic Qualified Code(s): D62 - Acute posthemorrhagic anemia Code(s): D64.9 - Anemia, unspecified Status: Acute Assessment and Plan: continue to monitor transfuse as needed for hgb below 7 (3) Chest pain: Qualifiers: Chest pain type: unspecified Qualified Code(s): R07.9 - Chest pain, unspecified Code(s): R07.9 - Chest pain, unspecified Status: Acute Assessment and Plan: likely due to acute UGI bleed resolved (4) Coronary artery disease: Qualifiers: Coronary Disease-Associated Artery/Lesion type: [place] artery [place] vs. transplanted heart: [place] heart Associated angina: without angina Qualified Code(s): I25.10 - Atherosclerotic heart disease of [place] coronary artery without angina pectoris Code(s): I25.10 - Atherosclerotic heart disease of [place] coronary artery without angina pectoris Status: Acute Assessment and Plan: currently w/o sx's (5) Chronic atrial flutter: Code(s): I48.92 - Unspecified atrial flutter Status: Acute Assessment and Plan: rate controlled no anticoagulation due to GI bleed (6) Pacemaker: Code(s): Z95.0 - Presence of cardiac pacemaker Status: Acute Assessment and Plan: pacing (7) Chronic anticoagulation: Code(s): Z79.01 - longterm (current) use of anticoagulants Status: Acute Assessment and Plan: held due to GI bleed (8) Sick sinus syndrome: Code(s): I49.5 - Sick sinus syndrome Status: Acute Assessment and Plan: pacer functioning (9) Cardiomyopathy: Qualifiers: Cardiomyopathy type: ischemic Qualified Code(s): I25.5 - Ischemic cardiomyopathy Code(s): I42.9 - Cardiomyopathy, unspecified Status: Acute Assessment and Plan: Continue regimen Subjective Date/time seen: 09/20/19 09:39 Interval history: 79 y/o male on chronic Xarelto therapy for atrial flutter was admitted 09/18 due to melena and anemia and chest pain. No new c/o. No chest pain or sob. Tolerating clear liquids. Review of Systems Review of Systems: All systems reviewed & are unremarkable except as noted in HPI and below Exam Narrative: Exam Narrative: HEENT: EOMI, PERRL, pharyngeal mucosa pink and intact NECK: No JVD CHEST: Clear to auscultation. Normal effort. HEART: NL S1/S2, regular, no murmur ABDOMEN: BS+, soft, nontender, no mass, no bruits EXTREMITIES: No cyanosis, edema, or clubbing NEUROLOGIC: CN intact and symmetric to inspection. MUSCULOSKELETAL: Tone and strength symmetric. PSYCH: Alert. Oriented to person, place, and time. Objective Data Vital Signs Vital Signs: Vital Signs - 24 hr 09/19/19 10:00 09/19/19 10:08 09/19/19 11:08 Temperature 97.3 F L Pulse Rate 64 64 62 Respiratory Rate 16 Blood Pressure 110/61 Pulse Oximetry 98 09/19/19 11:23 09/19/19 12:00 09/19/19 12:23 Temperature 97.0 F L 97.2 F L Pulse Rate 61 62 63 Respiratory Rate 17 16 Blood Pressure 106/60 101/61 Pulse Oximetry 99 96 09/19/19 12:56 09/19/19 13:23 09/19/19 14:00 Temperature 96.8 F L 97.2 F L Pulse Rate 65 67 71 Respiratory Rate 16 18 Blood Pressure 113/64 107/62 Pulse Oximetry 98 97 09/19/19 16:00 09/19/19 18:00 09/19/19 19:41 Temperature 97.4 F L 98 F Pulse Rate 64 65 62 Respiratory Rate 20 20 Blood Pressure 9
--- NOTE | 2019-09-20 10:10 | PM.PNCARD ---
Progress Note: A&P Assessment and Plan (1) Cardiomyopathy: Qualifiers: Cardiomyopathy type: ischemic Qualified Code(s): I25.5 - Ischemic cardiomyopathy Code(s): I42.9 - Cardiomyopathy, unspecified Status: Acute Assessment and Plan: EF 45 50%. Compensated. Echo pending (2) Pacemaker: Code(s): Z95.0 - Presence of cardiac pacemaker Status: Acute Assessment and Plan: Predominantly V paced (3) Chronic atrial flutter: Code(s): I48.92 - Unspecified atrial flutter Status: Acute Assessment and Plan: Previously on anticoagulation. Will hold Xarelto for now. GI workup in progress. (4) Chronic anticoagulation: Code(s): Z79.01 - group home (current) use of anticoagulants Status: Acute Assessment and Plan: As above, hold Xarelto (5) Coronary artery disease: Qualifiers: Coronary Disease-Associated Artery/Lesion type: [place] artery [place] vs. 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 Certainly his chest pain and shortness of breath sound anginal but worsened probably by anemia (6) Chest pain: Qualifiers: Chest pain type: unspecified Qualified Code(s): R07.9 - Chest pain, unspecified Code(s): R07.9 - Chest pain, unspecified Status: Acute Assessment and Plan: As detailed above, sounds anginal but underlying trigger is likely severe anemia/GI bleed. Obviously if he has continued symptoms despite transfusion and GI evaluation, ischemic workup can be performed as an outpatient (7) Gastrointestinal bleed: Qualifiers: GI bleed type/associated pathology: unspecified gastrointestinal hemorrhage type Qualified Code(s): K92.2 - Gastrointestinal hemorrhage, unspecified Code(s): K92.2 - Gastrointestinal hemorrhage, unspecified Status: Acute Assessment and Plan: Melanotic stools. Likely upper source. GI following. Scope Saturday (8) Anemia: Qualifiers: Anemia type: other cause Other causes of anemia: acute posthemorrhagic Qualified Code(s): D62 - Acute posthemorrhagic anemia Code(s): D64.9 - Anemia, unspecified Status: Acute Assessment and Plan: Currently getting transfused. Diuresis as needed after transfusions Subjective Date/time seen: 09/20/19 10:10 Interval history: 79 y/o male on chronic Xarelto therapy for atrial flutter was admitted 09/18 due to melena and anemia and chest pain. Date of service 09/20/2019: Feels well today. No chest pain or shortness of breath. Hemoglobin has responded. Plan for endoscopy tomorrow Review of Systems Review of Systems: All systems reviewed & are unremarkable except as noted in HPI and below Constitutional: Constitutional: Denies fatigue, Denies headache(s) and Reports weakness Eyes: Eyes: Denies blurry vision ENT: Reports Normal hearing present, Denies headache(s), Denies lip swelling, Denies epistaxis and Denies neck pain Cardiovascular: Cardiovascular: Reports chest pain, Reports leg edema and Reports dyspnea on exertion Respiratory: Respiratory: Reports dyspnea on exertion Gastrointestinal: Gastrointestinal: Reports melena Genitourinary: Genitourinary: Denies hematuria Musculoskeletal: Musculoskeletal: Denies arthralgias and Denies neck pain Integumentary/Breasts: Skin/Breast: Reports dry skin Neurologic: Reports Normal hearing present, Denies confusion, Denies headache(s) and Reports weakness Psychiatric: Psychiatric: Denies anxiety and Denies confusion Endocrine: Endocrine: Denies fatigue Hematologic/Lymphatic: Hematologic/Lympha
[2019-09-20] MEDS: PERFLUTREN LIPID MICROSPHERES 1.5 ML VIAL DILUTED TO 10 ML TOTAL VOLUME (10:18)
--- NOTE | 2019-09-20 14:08 | PC.NURSE ---
Received patient from [facility] on 09/20/2019 at 1400. Patient alert and oriented with no complaints at his time. Will continue to monitor patient.
[2019-09-20] MEDS: PEG (High)/E-LYTE SOLN 4,000 ML BTL 4000 ML PO (16:48)
[2019-09-21] VITALS (13 sets, daily range): BP systolic 72–118; BP diastolic 41–72; PULSE 63–82; RESP 12–20; TEMP 36.3–37.1; O2SAT 94–100
[2019-09-21 05:17] LABS: Hematocrit 27.1 % (42.0-52.0); Mean Corpuscular HGB Conc 33.2 g/dl (32-36); Mean Corpuscular Hemoglobin 31.8 pg (26-34); Mean Corpuscular Volume 95.8 fl (80-100); Mean Platelet Volume 11.4 fl (7.4-10.4); Platelet Count Result 141 k/mm3 (150-375); Red Blood Count 2.83 M/mm3 (4.6-6.20); Red Cell Distribution Width 15.4 % (11.5-14.5); White Blood Count 6.3 K/mm3 (4.5-10.0)
[2019-09-21 05:35] LABS: Blood Urea Nitrogen 13 mg/dL (9-20); Calcium 8.3 mg/dL (8.4-10.2); Carbon Dioxide 27 mmol/L (22-30); Chloride 101 mmol/L (98-107); Estimated CRCL calculation 97 ml/min; Estimated Glomerular Filt Rate > 60; Glucose 95 mg/dL (75-110); Potassium 3.8 mmol/L (3.4-5.0); Sodium 136 mmol/L (137-145)
[2019-09-21] MEDS: METOPROLOL SUCCINATE EXT REL 25 MG TABCR PO (08:50)
[2019-09-21] MEDS: FUROSEMIDE 20 MG TABLET PO (08:50)
[2019-09-21] MEDS: ROSUVASTATIN 10 MG TABLET 40 MG PO (08:50)
[2019-09-21] MEDS: TERAZOSIN HCL 5 MG CAPSULE 10 MG PO (08:51)
[2019-09-21] MEDS: lisinopriL 20 MG TABLET PO (08:51)
[2019-09-21] MEDS: TOLTERODINE TARTRATE 2 MG TABLET PO ×2 (08:55→20:52)
[2019-09-21] MEDS: PANTOPRAZOLE SODIUM IV 40 MG VIAL IV PUSH (09:10)
[2019-09-21] MEDS: LACTATED RINGERS 1,000 ML 150 ML IV CONT (11:01)
--- NOTE | 2019-09-21 11:59 | WPDANESEPPF ---
Anes - Initial Pre Proc Eval Procedure: Operation Date: 09/21/19 11:00 Proposed Procedures p Esophagogastroduodenoscopy & Colonoscopy - Sky Horner MD Date/Time: 09/21/19 11:59 Surgeon: Miko Ford MD Pre Op Diagnosis: GI Bleed/Anemia/Chest Pain Patient Data Age: 79 Gender: M Height: 5 ft 8 in Weight: 121.5 kg Last Vital Signs Temp 97.6 F 09/21/19 11:13 Pulse 63 09/21/19 11:13 Resp 18 09/21/19 11:13 BP 104/67 09/21/19 11:13 Pulse Ox 100 09/21/19 11:13 Allergies Allergy/AdvReac Type Severity Reaction Status Date / Time Penicillins Allergy Unknown Verified 09/17/18 08:08 Home Medications Medication Instructions Recorded Confirmed Type furosemide 20 mg PO DAILY 09/18/19 09/18/19 History lisinopril 20 mg PO DAILY 09/18/19 09/18/19 History metoprolol succinate 25 mg PO DAILY 09/18/19 09/18/19 History rivaroxaban [Xarelto] 20 mg PO HS 09/18/19 09/18/19 History rosuvastatin 40 mg PO DAILY 09/18/19 09/18/19 History terazosin 10 mg PO DAILY 09/18/19 09/18/19 History tolterodine 2 mg PO Q12H 09/19/19 09/19/19 History Laboratory Tests 09/21/19 09/21/19 05:04 05:04 WBC 6.3 K/mm3 K/mm3 (4.5-10.0) RBC 2.83 M/mm3 L M/mm3 (4.6-6.20) Hgb 9.0 g/dL L g/dL (14.0-18.0) Hct 27.1 % L % (42.0-52.0) MCV 95.8 fl fl (80-100) MCH 31.8 pg pg (26-34) MCHC 33.2 g/dl g/dl (32-36) RDW 15.4 % H % (11.5-14.5) Plt Count 141 k/mm3 L k/mm3 (150-375) MPV 11.4 fl H fl (7.4-10.4) Sodium 136 mmol/L L mmol/L (137-145) Potassium 3.8 mmol/L mmol/L (3.4-5.0) Chloride 101 mmol/L mmol/L (98-107) Carbon Dioxide 27 mmol/L mmol/L (22-30) BUN 13 mg/dL mg/dL (9-20) Creatinine 0.70 mg/dL mg/dL (0.7-1.3) Estim Creat Clear Calc 97 ml/min ml/min Estimated GFR > 60 (59 - ) Glucose 95 mg/dL mg/dL (75-110) Calcium 8.3 mg/dL L mg/dL (8.4-10.2) Patient hx anesthesia problems: none Family hx anesthesia problems: none [facility] Past Medical History Medical History Cardiomyopathy Chronic anticoagulation Chronic atrial flutter Coronary artery disease Hypertension Pacemaker Sick sinus syndrome Surgical History Surgical History Hx of CABG Family History Family History Sibling Cerebrovascular accident Malignant neoplasm of prostate Acute myocardial infarction Family history of malignant neoplasm of brain Patient's sister is Patient's brother is Mother Family history of diabetes mellitus in first degree relative Family history of congestive heart failure Patient's mother is Father Acute myocardial infarction Patient's father is Social History Social History Smoking status: Never smoker Alcohol intake: never Substance use: never Substance use type: does not use Spiritual care concerns: No Agree to blood products: Yes Anes - Eval Final PreProcedure Day of Procedure 09/21/19 11:59 Patient weight: morbidly obese Heart: regular rate and rhythm Lungs: clear to auscultation Airway: Mallampati scale class III Neurological: alert and oriented Last oral intake: >/= 8 hours ASA classification: IV Emergent: no Anesthetic plan: proceed Anesthesia type and monitoring: general GIVS and standard monitoring Informed Consent: The patient's anesthetic plan and its attendant risks and benefits were discussed with the patient/family/POA. Questions were solicited and answers provided to the satisfaction of the patient/family/POA.
--- NOTE | 2019-09-21 12:05 | PC.NURSE ---
Dr. Horner notified at 07 that patient did not complete his colonoscopy prep ordered yesterday and the patient was still not clear. Dr. Horner said to complete the prep and he will still have his colonoscopy and EGD with no further orders to assist with clearing. Patient restarted the prep at 07. He completed the prep at 0852. Report given to GI lab and notified of prep completion time. Patient to GI lab per tristan at 1050.
[2019-09-21] MEDS: BENZOCAINE (*SP) 60 ML SPRAY CAN (HURRICAINE) 1 SPRAY MUCOUS MEM (12:11)
--- NOTE | 2019-09-21 14:58 | P.PNIM_ITS ---
Progress Note: A&P Assessment and Plan (1) Gastrointestinal bleed: Qualifiers: GI bleed type/associated pathology: unspecified gastrointestinal hemorrhage type Qualified Code(s): K92.2 - Gastrointestinal hemorrhage, unspecified Code(s): K92.2 - Gastrointestinal hemorrhage, unspecified Status: Acute Assessment and Plan: * UGI vs small bowel vs right colon source * continue to hold Xarelto * F/u h/h stable thus far * 09/21 EGD negative * 09/21 Colonoscopy with diverticulosis and hemorrhoids, no active bleeding * SBFT and f/u h/h 09/22, then home if negative for outpatient capsule endoscopy (2) Anemia: Qualifiers: Anemia type: other cause Other causes of anemia: acute posthemorrhagic Qualified Code(s): D62 - Acute posthemorrhagic anemia Code(s): D64.9 - Anemia, unspecified Status: Acute Assessment and Plan: * continue to monitor * 09/21 hgb stable at 9.0 (3) Chest pain: Qualifiers: Chest pain type: unspecified Qualified Code(s): R07.9 - Chest pain, unspecified Code(s): R07.9 - Chest pain, unspecified Status: Acute Assessment and Plan: * likely due to acute UGI bleed * resolved (4) Coronary artery disease: Qualifiers: Coronary Disease-Associated Artery/Lesion type: [place] artery [place] vs. transplanted heart: [place] heart Associated angina: without angina Qualified Code(s): I25.10 - Atherosclerotic heart disease of [place] coronary artery without angina pectoris Code(s): I25.10 - Atherosclerotic heart disease of [place] coronary artery without angina pectoris Status: Acute Assessment and Plan: * currently w/o sx's (5) Chronic atrial flutter: Code(s): I48.92 - Unspecified atrial flutter Status: Acute Assessment and Plan: * rate controlled * no anticoagulation due to GI bleed (6) Pacemaker: Code(s): Z95.0 - Presence of cardiac pacemaker Status: Acute Assessment and Plan: * pacing (7) Chronic anticoagulation: Code(s): Z79.01 - alf (current) use of anticoagulants Status: Acute Assessment and Plan: * held due to GI bleed (8) Sick sinus syndrome: Code(s): I49.5 - Sick sinus syndrome Status: Acute Assessment and Plan: * pacer functioning (9) Cardiomyopathy: Qualifiers: Cardiomyopathy type: ischemic Qualified Code(s): I25.5 - Ischemic cardiomyopathy Code(s): I42.9 - Cardiomyopathy, unspecified Status: Acute Assessment and Plan: * Continue regimen Subjective Date/time seen: 09/21/19 14:58 Interval history: No over bleeding. No pain. no sob. No swelling. Tolerating diet. Review of Systems Review of Systems: All systems reviewed & are unremarkable except as noted in HPI and below Exam Narrative: Exam Narrative: HEENT: EOMI, PERRL, pharyngeal mucosa pink and intact NECK: No JVD CHEST: Clear to auscultation. Normal effort. HEART: NL S1/S2, regular, no murmur ABDOMEN: BS+, soft, nontender, no mass, no bruits EXTREMITIES: No cyanosis, edema, or clubbing NEUROLOGIC: CN intact and symmetric to inspection. MUSCULOSKELETAL: Tone and strength symmetric. PSYCH: Alert. Oriented to person, place, and time. Objective Data Vital Signs Vital Signs: Vital Signs - 24 hr 09/20/19 18:00 09/20/19 20:00 09/21/19 00:00 Temperature 97.1 F L 97.3 F L 97.6 F Pulse R
--- NOTE | 2019-09-21 14:58 | PM.IMPN ---
Progress Note: A&P Assessment and Plan (1) Gastrointestinal bleed: Qualifiers: GI bleed type/associated pathology: unspecified gastrointestinal hemorrhage type Qualified Code(s): K92.2 - Gastrointestinal hemorrhage, unspecified Code(s): K92.2 - Gastrointestinal hemorrhage, unspecified Status: Acute Assessment and Plan: UGI vs small bowel vs right colon source continue to hold Xarelto F/u h/h stable thus far 09/21 EGD negative 09/21 Colonoscopy with diverticulosis and hemorrhoids, no active bleeding SBFT and f/u h/h 09/22, then home if negative for outpatient capsule endoscopy (2) Anemia: Qualifiers: Anemia type: other cause Other causes of anemia: acute posthemorrhagic Qualified Code(s): D62 - Acute posthemorrhagic anemia Code(s): D64.9 - Anemia, unspecified Status: Acute Assessment and Plan: continue to monitor 09/21 hgb stable at 9.0 (3) Chest pain: Qualifiers: Chest pain type: unspecified Qualified Code(s): R07.9 - Chest pain, unspecified Code(s): R07.9 - Chest pain, unspecified Status: Acute Assessment and Plan: likely due to acute UGI bleed resolved (4) Coronary artery disease: Qualifiers: Coronary Disease-Associated Artery/Lesion type: [place] artery [place] vs. transplanted heart: [place] heart Associated angina: without angina Qualified Code(s): I25.10 - Atherosclerotic heart disease of [place] coronary artery without angina pectoris Code(s): I25.10 - Atherosclerotic heart disease of [place] coronary artery without angina pectoris Status: Acute Assessment and Plan: currently w/o sx's (5) Chronic atrial flutter: Code(s): I48.92 - Unspecified atrial flutter Status: Acute Assessment and Plan: rate controlled no anticoagulation due to GI bleed (6) Pacemaker: Code(s): Z95.0 - Presence of cardiac pacemaker Status: Acute Assessment and Plan: pacing (7) Chronic anticoagulation: Code(s): 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 No pain. no sob. No swelling. Tolerating diet. Review of Systems Review of Systems: All systems reviewed & are unremarkable except as noted in HPI and below Exam Narrative: Exam Narrative: HEENT: EOMI, PERRL, pharyngeal mucosa pink and intact NECK: No JVD CHEST: Clear to auscultation. Normal effort. HEART: NL S1/S2, regular, no murmur ABDOMEN: BS+, soft, nontender, no mass, no bruits EXTREMITIES: No cyanosis, edema, or clubbing NEUROLOGIC: CN intact and symmetric to inspection. MUSCULOSKELETAL: Tone and strength symmetric. PSYCH: Alert. Oriented to person, place, and time. Objective Data Vital Signs Vital Signs: Vital Signs - 24 hr 09/20/19 18:00 09/20/19 20:00 09/21/19 00:00 Temperature 97.1 F L 97.3 F L 97.6 F Pulse Rate 65 61 64 Respiratory Rate 20 16 16 Blood Pressure 95/60 L 105/66 104/59 L Pulse Oximetry 98 99 95 09/21/19 01:32 09/21/19 04:00 09/21/19 08:00 Temperature 97.7 F 98.7 F Pulse Rate 82 63 63 Respiratory Rate 18 16 20 Blood Pressure 114/60 118/72 Pulse Oximetry 94 99 98 09/21/19 08:50 09/21/19 11:13 09/21/19 12:42 Temperature 97.6 F Pulse Rate 63 63 64 Respiratory Rate 18 16 Blood Pressure 104/67 72/41 L Pulse Oximetry 100 98 09/21/19 12:52 09/21/19 13:02 09/21/19 13:30 Temperature Pulse Rate 72 65 Re
[2019-09-22] VITALS (10 sets, daily range): BP systolic 96–111; BP diastolic 55–75; PULSE 62–64; RESP 16–22; TEMP 36.2–36.6; O2SAT 93–99
[2019-09-22 05:04] LABS: Hematocrit 26.6 % (42.0-52.0); Hemoglobin 8.5 g/dL (14.0-18.0); Mean Corpuscular Volume 97.1 fl (80-100); Mean Platelet Volume 11.2 fl (7.4-10.4); Platelet Count Result 149 k/mm3 (150-375); Red Blood Count 2.74 M/mm3 (4.6-6.20); Red Cell Distribution Width 15.3 % (11.5-14.5)
[2019-09-22 05:19] LABS: Blood Urea Nitrogen 13 mg/dL (9-20); Calcium 8.4 mg/dL (8.4-10.2); Carbon Dioxide 28 mmol/L (22-30); Chloride 102 mmol/L (98-107); Estimated CRCL calculation 97 ml/min; Estimated Glomerular Filt Rate > 60; Glucose 99 mg/dL (75-110); Potassium 4.3 mmol/L (3.4-5.0); Sodium 138 mmol/L (137-145)
[2019-09-22] MEDS: FUROSEMIDE 20 MG TABLET PO (09:14)
[2019-09-22] MEDS: lisinopriL 20 MG TABLET PO (09:14)
[2019-09-22] MEDS: ROSUVASTATIN 10 MG TABLET 40 MG PO (09:15)
[2019-09-22] MEDS: TERAZOSIN HCL 5 MG CAPSULE 10 MG PO (09:16)
[2019-09-22] MEDS: TOLTERODINE TARTRATE 2 MG TABLET PO ×2 (09:16→20:43)
[2019-09-22] MEDS: METOPROLOL SUCCINATE EXT REL 25 MG TABCR PO (09:17)
--- NOTE | 2019-09-22 11:28 | WPDGIPROGNO ---
Progress Note: A&P Additional Plan Patient alert and comfortable this morning. Tolerating diet with no problems. No obvious additional bleeding noted. Physical exam reveals patient to be alert. Comfortable at rest. He is anicteric. Vital signs stable. Lungs are clear. Heart without murmur. Abdomen is obese soft nontender with no organomegaly. Laboratory work. Hemoglobin 8.5. Small-bowel follow-through unremarkable. Impression 1. GI bleeding. Etiology for blood loss unclear. Undoubtedly aggravated by anticoagulation. Xarelto now on hold. Diverticulosis and hemorrhoids identified by endoscopy. These are unlikely to be the etiology for recent blood loss. Small-bowel series unremarkable. 2. Cardiomyopathy. 3. Atrial fibrillation. Plan is to advance diet. Hopefully anticoagulation can be avoided. This would minimize risk of additional blood loss in the future. If anticoagulation is required close follow-up of hemoglobin recommended. Hopefully patient can be discharged soon.. Subjective Date/time seen: 09/22/19 11:28 Objective Data Vital Signs Vital Signs: Vital Signs - 24 hr 09/21/19 12:42 09/21/19 12:52 09/21/19 13:02 Temperature Pulse Rate 64 72 65 Respiratory Rate 16 18 18 Blood Pressure 72/41 L 76/46 L 91/52 L Pulse Oximetry 98 99 99 09/21/19 13:30 09/21/19 16:00 09/21/19 21:45 Temperature 36.3 C L 36.3 C L Pulse Rate 63 68 Respiratory Rate 20 20 Blood Pressure 109/66 113/70 100/68 Pulse Oximetry 96 98 09/21/19 22:30 09/22/19 02:00 09/22/19 02:27 Temperature 36.3 C L Pulse Rate 63 63 62 Respiratory Rate 12 20 16 Blood Pressure 96/56 L Pulse Oximetry 96 99 95 09/22/19 06:00 09/22/19 09:00 09/22/19 09:17 Temperature 36.6 C Pulse Rate 64 64 64 Respiratory Rate 20 18 Blood Pressure 97/55 L 103/57 L Pulse Oximetry 97 99 09/22/19 09:55 Temperature 36.6 C Pulse Rate 64 Respiratory Rate 18 Blood Pressure 103/57 L Pulse Oximetry 99 Intake/Output Intake/Output: Intake & Output 09/19/19 09/20/19 09/21/19 09/22/19 23:59 23:59 23:59 23:59 Intake Total 2264 850 1025 620 Output Total 4938 6692 0918 0180 [facility] -[phone] Meds/Results Medications: Active Medications Generic Name Dose Route Start Last Admin Trade Name Jacqui PRN Reason Stop Dose Admin Furosemide 20 mg 09/19/19 09:00 09/22/19 09:14 Lasix Tablet PO 20 mg DAILY TRACY Administration Lidocaine HCl 0.3 ml 09/21/19 07:28 Xylocaine 2% Local Inj INTRADERM ONCE PRN to numb area Lisinopril 20 mg 09/19/19 09:00 09/22/19 09:14 Prinivil PO 20 mg DAILY TRACY Administration Metoprolol Succinate 25 mg 09/19/19 09:00 09/22/19 09:17 Toprol Xl PO 25 mg DAILY TRACY Administration Rosuvastatin Calcium 40 mg 09/19/19 09:00 09/22/19 09:15 Crestor PO 40 mg DAILY TRACY Administration Terazosin HCl 10 mg 09/19/19 09:00 09/22/19 09:16 Hytrin PO 10/19/19 09:01 10 mg DAILY TRACY Administration Tolterodine Tartrate 2 mg 09/19/19 09:00 09/22/19 09:16 Detrol PO 2 mg Q12HR TRACY Administration Radiology Results: ITS Impressions Chest X-Ray 09/18/19 15:36 IMPRESSION: 1. Cardiomegaly. Upper GI and Small Bowel X-Ray 09/21/19 19:01 IMPRESSION: 1: Normal small bowel series. Labs Labs: Laboratory Results - last 24 hr 09/22/19 09/22/19 04:48 04:48 WBC 6.0 RBC 2.74 L Hgb 8.5 L Hct 26.6 L MCV 97.1 MCH 31.0 MCHC 32.0 RDW 15.3 H Plt Count 149 L MPV 11.2 H Sodium 138 Potassium 4.3 Chloride 102 Carbon Dioxide 28 BUN 13 Creatinine 0.70 Estim Creat Clear Calc 97 Estimated GFR > 60 Glucose 99 Calcium 8.4
--- NOTE | 2019-09-22 14:59 | PM.PNCARD ---
Progress Note: A&P Assessment and Plan (1) Cardiomyopathy: Qualifiers: Cardiomyopathy type: ischemic Qualified Code(s): I25.5 - Ischemic cardiomyopathy Code(s): I42.9 - Cardiomyopathy, unspecified Status: Acute Assessment and Plan: Compensated Echo 09/20/2019: Left ventricular chamber dimension is mildly enlarged. Left ventricular systolic function is normal, estimated at 55-60%. Mildly increased left ventricular wall thickness. Left ventricular diastolic function is abnormal. Right ventricular chamber dimension is severely enlarged. Right atrial chamber dimension is severely enlarged. Left atrial chamber dimension is severely enlarged. Moderate aortic valve regurgitation. Mild aortic valve calcification. Mild mitral valve regurgitation. Mild to moderate tricuspid valve regurgitation. Moderate pulmonary hypertension, estimated pulmonary arterial systolic pressure is 57 mmHg. Continue Metoprolol succinate and lisinopril. (2) Atrial fibrillation, chronic: Code(s): I48.20 - Chronic atrial fibrillation, unspecified Status: Acute Assessment and Plan: Anticoagulated with Xarelto. Xarelto on hold since admission. Hemoglobin of 7.9 on admission. Improved with transfusion. No bleeding found on endoscopy. Possibly could have had bleeding from diverticulosis and hemorrhoids. reports that he has been followed by (assistant corporate controller) and has undergone an AV chantal ablation VVIR pacing. 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 very concerned that he has not had any anticoagulation since admission. Long discussion regarding risks and benefits of continuing anticoagulation and monitoring his H&H closely versus stroke risk and not continuing anticoagulation. May be a candidate for Watchman. (5) Coronary artery disease: Qualifiers: Associated angina: without angina Coronary Disease-Associated Artery/Lesion type: [place] artery [place] vs. transplanted heart: [place] heart Qualified Code(s): I25.10 - Atherosclerotic heart disease of [place] coronary artery without angina pectoris Code(s): I25.10 - Atherosclerotic heart disease of [place] coronary artery without angina pectoris Status: Acute Assessment and Plan: Status post complex PCI to the LAD with residual PDA disease. Chest discomfort and shortness of breath on admission thought to be anginal aggravated by his anemia. No further chest discomfort or shortness of breath since transfusion. Continue beta-neal, ESTHELA-inhibitor and rosuvastatin. (6) Chest pain: Qualifiers: Chest pain type: unspecified Qualified Code(s): R07.9 - Chest pain, unspecified Code(s): R07.9 - Chest pain, unspecified Status: Acute Assessment and Plan: No further chest discomfort or shortness of breath since transfusion as above. Troponin negative x3. If continues to have anginal symptoms consider outpatient stress test. (7) Gastrointestinal bleed: Qualifiers: GI bleed type/associated pathology: unspecified gastrointestinal hemorrhage type Qualified Code(s): K92.2 - Gastrointestinal hemorrhage, unspecified Code(s): K92.2 - Gastrointestinal hemorrhage, unspecified Status: Acute Assessment and Plan: Endoscopy findings as above. H&H stable since transfusion. (8) Anemia: Qualifiers: Anemia type: other cause Other causes of anemia: acute posthemorrhagic Qualified Code(s):
--- NOTE | 2019-09-22 16:26 | PC.NURSE ---
On 09/22/19, the student, Silvestre Fox, provided care and completed [employer] documentation on this patient. I have reviewed the student's documentation and agree with the findings.
--- NOTE | 2019-09-22 16:41 | P.PNIM_ITS ---
Progress Note: A&P Assessment and Plan (1) Gastrointestinal bleed: Qualifiers: GI bleed type/associated pathology: unspecified gastrointestinal hemorrhage type Qualified Code(s): K92.2 - Gastrointestinal hemorrhage, unspecified Code(s): K92.2 - Gastrointestinal hemorrhage, unspecified Status: Acute Assessment and Plan: * UGI vs small bowel vs right colon source * continue to hold Xarelto * F/u h/h stable thus far * 09/21 EGD negative * 09/21 Colonoscopy with diverticulosis and hemorrhoids, no active bleeding * SBFT negative possible outpatient capsule endoscopy (2) Anemia: Qualifiers: Anemia type: other cause Other causes of anemia: acute posthemorrhagic Qualified Code(s): D62 - Acute posthemorrhagic anemia Code(s): D64.9 - Anemia, unspecified Status: Acute Assessment and Plan: * continue to monitor * 09/21 hgb stable at 9.0 * 09/22 hemoglobin 8.5 * Iron TIBC and B12 level in a.m. possible IV iron before discharge (3) Chest pain: Qualifiers: Chest pain type: unspecified Qualified Code(s): R07.9 - Chest pain, unspecified Code(s): R07.9 - Chest pain, unspecified Status: Acute Assessment and Plan: * likely due to acute UGI bleed * resolved (4) Coronary artery disease: Qualifiers: Coronary Disease-Associated Artery/Lesion type: [place] artery [place] vs. transplanted heart: [place] heart Associated angina: without angina Qualified Code(s): I25.10 - Atherosclerotic heart disease of [place] coronary artery without angina pectoris Code(s): I25.10 - Atherosclerotic heart disease of [place] coronary artery without angina pectoris Status: Acute Assessment and Plan: * currently w/o sx's * Chest pain on admission probably secondary to ischemia from anemia as above (5) Chronic atrial flutter: Code(s): I48.92 - Unspecified atrial flutter Status: Acute Assessment and Plan: * rate controlled * no anticoagulation due to GI bleed (6) Pacemaker: Code(s): Z95.0 - Presence of cardiac pacemaker Status: Acute Assessment and Plan: * pacing (7) Chronic anticoagulation: Code(s): Z79.01 - shelter (current) use of anticoagulants Status: Acute Assessment and Plan: * held due to GI bleed (8) Sick sinus syndrome: Code(s): I49.5 - Sick sinus syndrome Status: Acute Assessment and Plan: * pacer functioning (9) Cardiomyopathy: Qualifiers: Cardiomyopathy type: ischemic Qualified Code(s): I25.5 - Ischemic cardiomyopathy Code(s): I42.9 - Cardiomyopathy, unspecified Status: Acute Assessment and Plan: * Continue regimen EF 45% continue beta-neal, ESTHELA-inhibitor, and resume diuretic Subjective Date/time seen: 09/22/19 16:41 Interval history: Date of visit 09/21/2019. no bleeding. No pain. no sob. No swelling. Tolerating diet. But has not been much and feels weak Exam Narrative: Exam Narrative: Blood pressure 104/60 pulse is 64 regular HEENT: EOMI, NECK: No JVD or bruits CHEST: Clear to auscultation. Normal effort. HEART: NL S1/S2, regular, no murmur ABDOMEN: BS+, soft, nontender, no mass, no bruits EXTREMITIES: No cyanosis, edema, or clubbing NEUROLOGIC: CN intact and symmetric to inspection. PSYCH: Alert. Oriented to person, place, and time. Objective Data Vital Signs Vital Signs: Vital Signs - 24 hr 09/21/19 21:45 09/21/19
--- NOTE | 2019-09-22 16:41 | PM.IMPN ---
Progress Note: A&P Assessment and Plan (1) Gastrointestinal bleed: Qualifiers: GI bleed type/associated pathology: unspecified gastrointestinal hemorrhage type Qualified Code(s): K92.2 - Gastrointestinal hemorrhage, unspecified Code(s): K92.2 - Gastrointestinal hemorrhage, unspecified Status: Acute Assessment and Plan: UGI vs small bowel vs right colon source continue to hold Xarelto F/u h/h stable thus far 09/21 EGD negative 09/21 Colonoscopy with diverticulosis and hemorrhoids, no active bleeding SBFT negative possible outpatient capsule endoscopy (2) Anemia: Qualifiers: Anemia type: other cause Other causes of anemia: acute posthemorrhagic Qualified Code(s): D62 - Acute posthemorrhagic anemia Code(s): D64.9 - Anemia, unspecified Status: Acute Assessment and Plan: continue to monitor 09/21 hgb stable at 9.0 09/22 hemoglobin 8.5 Iron TIBC and B12 level in a.m. possible IV iron before discharge (3) Chest pain: Qualifiers: Chest pain type: unspecified Qualified Code(s): R07.9 - Chest pain, unspecified Code(s): R07.9 - Chest pain, unspecified Status: Acute Assessment and Plan: likely due to acute UGI bleed resolved (4) Coronary artery disease: Qualifiers: Coronary Disease-Associated Artery/Lesion type: [place] artery [place] vs. transplanted heart: [place] heart Associated angina: without angina Qualified Code(s): I25.10 - Atherosclerotic heart disease of [place] coronary artery without angina pectoris Code(s): I25.10 - Atherosclerotic heart disease of [place] coronary artery without angina pectoris Status: Acute Assessment and Plan: currently w/o sx's Chest pain on admission probably secondary to ischemia from anemia as above (5) Chronic atrial flutter: Code(s): I48.92 - Unspecified atrial flutter Status: Acute Assessment and Plan: rate controlled no anticoagulation due to GI bleed (6) Pacemaker: Code(s): Z95.0 - Presence of cardiac pacemaker Status: Acute Assessment and Plan: pacing (7) Chronic anticoagulation: Code(s): 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 no bleeding. No pain. no sob. No swelling. Tolerating diet. But has not been much and feels weak Exam Narrative: Exam Narrative: Blood pressure 104/60 pulse is 64 regular HEENT: EOMI, NECK: No JVD or bruits CHEST: Clear to auscultation. Normal effort. HEART: NL S1/S2, regular, no murmur ABDOMEN: BS+, soft, nontender, no mass, no bruits EXTREMITIES: No cyanosis, edema, or clubbing NEUROLOGIC: CN intact and symmetric to inspection. PSYCH: Alert. Oriented to person, place, and time. Objective Data Vital Signs Vital Signs: Vital Signs - 24 hr 09/21/19 21:45 09/21/19 22:30 09/22/19 02:00 Temperature 36.3 C L 36.3 C L Pulse Rate 68 63 63 Respiratory Rate 20 12 20 Blood Pressure 100/68 96/56 L Pulse Oximetry 98 96 99 09/22/19 02:27 09/22/19 06:00 09/22/19 09:00 Temperature 36.6 C Pulse Rate 62 64 64 Respiratory Rate 16 20 18 Blood Pressure 97/55 L 103/57 L Pulse Oximetry 95 97 99 09/22/19 09:17 09/22/19 09:55 09/22/19 14:08 Temperature 36.6 C 36.6 C Pulse Rate 64 64 64 Respiratory Rate 18 18 Blood Pressure 103/57 L 110/75 Pulse O
[2019-09-23 01:48] VITALS: PULSE 64; RESP 15; O2SAT 96
[2019-09-23 05:55] LABS: Blood Urea Nitrogen 16 mg/dL (9-20); Calcium 8.6 mg/dL (8.4-10.2); Carbon Dioxide 27 mmol/L (22-30); Chloride 101 mmol/L (98-107); Estimated CRCL calculation 86 ml/min; Estimated Glomerular Filt Rate > 60; Glucose 92 mg/dL (75-110); Potassium 4.2 mmol/L (3.4-5.0); Sodium 137 mmol/L (137-145)
[2019-09-23 06:00] VITALS: BP 100/65; PULSE 65; RESP 20; TEMP 36.3; O2SAT 98
[2019-09-23 06:04] LABS: Basophils Percent Auto 0.3 % (0.2-1.2); Eosinophils Absolute Auto 0.4 K/mm3 (0-0.3); Eosinophils Percent Auto 6.2 % (0-4.4); Hematocrit 27.5 % (42.0-52.0); Hemoglobin 8.9 g/dL (14.0-18.0); Immature Granulocyte Absolute 0.03 K/mm3 (0.00-0.031); Immature Granulocyte Percent A 0.5 % (0-0.5); Lymphocytes Absolute Auto 0.92 K/mm3 (0.9-3.2); Lymphocytes Percent Auto 15.3 % (18.3-44.2); Mean Corpuscular HGB Conc 32.4 g/dl (32-36); Mean Corpuscular Hemoglobin 31.2 pg (26-34); Mean Corpuscular Volume 96.5 fl (80-100); Mean Platelet Volume 11.7 fl (7.4-10.4); Monocytes Absolute Auto 0.7 K/mm3 (0.1-0.6); Monocytes Percent Auto 11.7 % (2.6-8.5); Platelet Count Result 149 k/mm3 (150-375); Red Blood Count 2.85 M/mm3 (4.6-6.20); Red Cell Distribution Width 14.9 % (11.5-14.5)
[2019-09-23 06:18] LABS: Iron 26 ug/dL (49-181)
[2019-09-23 06:27] LABS: Percent Iron Saturation 8 % (20-50)
--- NOTE | 2019-09-23 07:51 | WPDGIPROGNO ---
Progress Note: A&P Additional Plan Patient alert and comfortable this morning. He denies abdominal pain. He has no obvious blood loss. His stools have returned to normal. Physical exam he is lying in bed. Using CPAP mask at night. Lungs are clear. Abdomen is obese. Bowel sounds present soft nontender. Laboratory with hemoglobin 8.9. Impression 1. Anemia. Related to GI blood loss. Appears to be precipitated by anticoagulated status. No obvious GI source identified. Suspect a small lesion with bleeding because of anticoagulation. Plan is to continue advance diet. Avoid anticoagulation if possible. will seek cardiology input regarding holding anticoagulation. Okay for discharge from GI perspective. Continue to monitor hemoglobin. Subjective Date/time seen: 09/23/19 07:51 Objective Data Vital Signs Vital Signs: Vital Signs - 24 hr 09/22/19 09:00 09/22/19 09:17 09/22/19 09:55 Temperature 36.6 C Pulse Rate 64 64 64 Respiratory Rate 18 18 Blood Pressure 103/57 L 103/57 L Pulse Oximetry 99 99 09/22/19 14:08 09/22/19 22:00 09/22/19 22:20 Temperature 36.6 C 36.2 C L Pulse Rate 64 63 63 Respiratory Rate 18 20 22 H Blood Pressure 110/75 98/61 L Pulse Oximetry 93 98 96 09/22/19 23:30 09/23/19 01:48 09/23/19 06:00 Temperature 36.3 C L Pulse Rate 64 65 Respiratory Rate 15 20 Blood Pressure 111/60 100/65 Pulse Oximetry 96 98 Intake/Output Intake/Output: Intake & Output 09/20/19 09/21/19 09/22/19 09/23/19 23:59 23:59 23:59 23:59 Intake Total 850 1025 2280 800 Output Total 1425 8565 4865 750 Balance -690 -9016 -195 50 Meds/Results Medications: Active Medications Generic Name Dose Route Start Last Admin Trade Name Freq PRN Reason Stop Dose Admin Furosemide 20 mg 09/19/19 09:00 09/22/19 09:14 Lasix Tablet PO 20 mg DAILY TRACY Administration Lidocaine HCl 0.3 ml 09/21/19 07:28 Xylocaine 2% Local Inj INTRADERM ONCE PRN to numb area Lisinopril 20 mg 09/19/19 09:00 09/22/19 09:14 Prinivil PO 20 mg DAILY TRACY Administration Metoprolol Succinate 25 mg 09/19/19 09:00 09/22/19 09:17 Toprol Xl PO 25 mg DAILY TRACY Administration Rosuvastatin Calcium 40 mg 09/19/19 09:00 09/22/19 09:15 Crestor PO 40 mg DAILY TRACY Administration Terazosin HCl 10 mg 09/19/19 09:00 09/22/19 09:16 Hytrin PO 10/19/19 09:01 10 mg DAILY TRACY Administration Tolterodine Tartrate 2 mg 09/19/19 09:00 09/22/19 20:43 Detrol PO 2 mg Q12HR TRACY Administration Radiology Results: ITS Impressions Chest X-Ray 09/18/19 15:36 IMPRESSION: 1. Cardiomegaly. Upper GI and Small Bowel X-Ray 09/21/19 19:01 IMPRESSION: 1: Normal small bowel series. Labs Labs: Laboratory Results - last 24 hr 09/23/19 09/23/19 09/23/19 04:54 04:54 04:54 WBC 6.0 RBC 2.85 L Hgb 8.9 L Hct 27.5 L MCV 96.5 MCH 31.2 MCHC 32.4 RDW 14.9 H Plt Count 149 L MPV 11.7 H Immature Gran % (Auto) 0.5 Neut % (Auto) 66.0 Lymph % (Auto) 15.3 L [place] % (Auto) 11.7 H Eos % (Auto) 6.2 H Baso % (Auto) 0.3 Lymph # (Auto) 0.92 [place] # (Auto) 0.7 H Eos # (Auto) 0.4 H Baso # (Auto) 0.0 Abs Immat Gran (auto) 0.03 Absolute Neuts (auto) 4.0 Absolute Nucleated RBC 0.0 Nucleated RBC % 0.0 Sodium 137 Potassium 4.2 Chloride 101 Carbon Dioxide 27 BUN 16 Creatinine 0.80 Estim Creat Clear Calc 86 Estimated GFR > 60 Glucose 92 Calcium 8.6 Iron 26 L TIBC 313 Ferritin 17.40 Vitamin B12 419.0
[2019-09-23 09:06] VITALS: BP 105/62; PULSE 62
[2019-09-23] MEDS: ROSUVASTATIN 10 MG TABLET 40 MG PO (09:15)
[2019-09-23] MEDS: TERAZOSIN HCL 5 MG CAPSULE 10 MG PO (09:15)
[2019-09-23] MEDS: lisinopriL 20 MG TABLET PO (09:15)
[2019-09-23] MEDS: FUROSEMIDE 20 MG TABLET PO (09:15)
[2019-09-23 09:16] VITALS: PULSE 65
[2019-09-23] MEDS: TOLTERODINE TARTRATE 2 MG TABLET PO (09:16)
[2019-09-23] MEDS: METOPROLOL SUCCINATE EXT REL 25 MG TABCR PO (09:16)
--- NOTE | 2019-09-23 18:14 | PM.DS ---
DS: Diagnosis Admitting Diagnosis Admitting Diagnosis: Cardiomyopathy, unspecified Discharge Diagnosis (1) Gastrointestinal bleed: Qualifiers: GI bleed type/associated pathology: unspecified gastrointestinal hemorrhage type Qualified Code(s): K92.2 - Gastrointestinal hemorrhage, unspecified Code(s): K92.2 - Gastrointestinal hemorrhage, unspecified Status: Acute Assessment and Plan: UGI vs small bowel vs right colon source continue to hold Xarelto F/u h/h stable at 8.9 today(had 2 units of packed cells after admission) and will have repeat on 09/28 and 10/05 09/21 EGD negative 09/21 Colonoscopy with diverticulosis and hemorrhoids, no active bleeding SBFT negative possible outpatient capsule endoscopy if indicated later (2) Anemia: Qualifiers: Anemia type: other cause Other causes of anemia: acute posthemorrhagic Qualified Code(s): D62 - Acute posthemorrhagic anemia Code(s): D64.9 - Anemia, unspecified Status: Acute Assessment and Plan: Anemia iron deficiency with probable chronic blood loss continue to monitor 09/21 hgb stable at 9.0 09/22 hemoglobin 8.5 09/23 8.9 Iron TIBC and ferritin compatible with iron deficiency with ferritin only 17. Did receive 300 mg of IV Venofer before discharge (3) Coronary artery disease: Qualifiers: Coronary Disease-Associated Artery/Lesion type: jena artery [place] vs. transplanted heart: jena heart Associated angina: without angina Qualified Code(s): I25.10 - Atherosclerotic heart disease of jena coronary artery without angina pectoris Code(s): I25.10 - Atherosclerotic heart disease of jena coronary artery without angina pectoris Status: Acute Assessment and Plan: currently w/o sx's Chest pain on admission probably secondary to ischemia from anemia as above no change in medication per Cardiology (4) Chronic atrial flutter: Code(s): I48.92 - Unspecified atrial flutter Status: Deleted Assessment and Plan: rate controlled and history of pacer for sick sinus syndrome no anticoagulation due to GI bleed to be determined whether anticoagulants will be restarted in the future (5) Cardiomyopathy: Qualifiers: Cardiomyopathy type: ischemic Qualified Code(s): I25.5 - Ischemic cardiomyopathy Code(s): I42.9 - Cardiomyopathy, unspecified Status: Acute Assessment and Plan: Continue regimen EF 45% continue beta-neal, ESTHELA-inhibitor, and resumed diuretic well compensated DS: Summary Hospital Course Hospital Course: 79-year-old white male with chronic atrial flutter on anticoagulation admitted with anemia. No source of GI bleed to be found although did had diverticular disease and is soon to be either small-bowel or GI sources and colon of bleeding. Received 2 units of packed cells and hemoglobin remained stable at 8.9 on discharge Anticoagulant held in to be determined whether to restart in the future. Repeat CBC on 09/28 and 10/05 Time Spent with Patient Time attestation: Total time spent providing and/or coordinating discharge services: 35 minutes Exam Narrative: Exam Narrative: Condition on discharge: Blood pressure 104/62 pulse is 62 sat 98% on room air Lungs are clear CV no murmurs or gallops Extremities trace edema only if any Abdomen is benign nontender Ambulating with PT DS: Data Data Completed and Pending Labs on day of discharge: Labs from last 24 hours 09/23/19 09/23/19 09/23/19 04:54 04:54 04:54 WBC 6.0 RBC 2.85 L Hgb 8.9 L Hct 27.5 L MCV 96.5 MCH 31.2 MCHC 32.4 RDW 14.9 H Plt Count 149 L MPV 11.7 H Immature Gran % (Auto) 0.5 Neut % (Auto) 66.0 Lymph % (Auto) 15.3 L [place] % (Auto) 11.7 H Eos % (Auto) 6.2 H Baso % (Auto) 0.3 Lymph # (Auto) 0.92 [place] # (Auto) 0.7 H Eos # (Auto) 0.4 H Baso # (Auto) 0.0 Abs Immat Gran (auto) 0.03 Absolute Neuts
== END 2019-09-23 13:00 | disposition home or self-care (01) | DRG 378 ==
LOC: ANHED 16:48 → ANHIMU 17:27 → ANH2MED 09-21 07:18 → ANHIMU 09-25 12:50
PROVIDERS: Emergency Medicine Emergency Medical Services; Internal Medicine Gastroenterology; Admitting Provider Internal Medicine; Emergency Provider Emergency Medicine; Visit Provider Internal Medicine
PROC: 0DJ08ZZ Inspection of Upper Intestinal Tract, Via Natural or Artificial Opening Endoscopic (ICD-10-PCS; CPT 43235; principal; 2019-09-21 11:00)
DX: K92.2 Gastrointestinal hemorrhage, unspecified (principal); D62 Acute posthemorrhagic anemia; D68.32 Hemorrhagic disorder due to extrinsic circulating anticoagulants; I48.92 Unspecified atrial flutter; Z68.41 Body mass index [BMI] 40.0-44.9, adult; T45.515A Adverse effect of anticoagulants, initial encounter; K57.30 Diverticulosis of large intestine without perforation or abscess without bleeding; K64.8 Other hemorrhoids; E66.01 Morbid (severe) obesity due to excess calories; I25.10 Atherosclerotic heart disease of native coronary artery without angina pectoris; I25.5 Ischemic cardiomyopathy; I10 Essential (primary) hypertension; G47.33 Obstructive sleep apnea (adult) (pediatric); N40.0 Benign prostatic hyperplasia without lower urinary tract symptoms; L30.9 Dermatitis, unspecified; I49.5 Sick sinus syndrome; Z96.653 Presence of artificial knee joint, bilateral; Z95.1 Presence of aortocoronary bypass graft; Z95.0 Presence of cardiac pacemaker; Z98.42 Cataract extraction status, left eye; Z98.41 Cataract extraction status, right eye; Z85.46 Personal history of malignant neoplasm of prostate; Z79.01 Long term (current) use of anticoagulants
CPT/HCPCS: 36415; 36430; 71046; 74250; 80048; 80053; 82607; 82728; 83540; 83550; 83690; 83880; 84484; 85014; 85018; 85025; 85027; 85610; 85730; 86850; 86900; 86901; 86920; 93005; 96361; 96374; 97161; 97165; 97535; 99285; A9270; C8929; C9113; G0378; J1756; J2704; J7050; J7120; P9016; Q9957

== ENCOUNTER 2020-03-30 20:36 | Observation (INO) | payer OTHER, SELFPAY ==
--- NOTE | ~2020-03-30 | XR_ITS ---
EXAMINATION: XR chest 2V EXAM DATE: 03/30/2020 20:59 INDICATION: Shortness of breath and high blood pressure. TECHNIQUE: Portable AP frontal chest x-ray was obtained. Comparison is made to prior examination from 09/18/2019. FINDINGS: There is single lead pacemaker/AICD device seen with tip projecting over the expected locat ion of right ventricle. Linear left perihilar atelectasis or scarring. The lungs are otherwise clear. There are no pleural effusions. The cardiomediastinal silhouette is prominent but magnified on this AP technique. There is no pneumothorax suspected. The bones and soft tissues are unremarkable. IMPRESSION: Linear left perihilar atelectasis. Reviewed, dictated and finalized at location A.
--- NOTE | ~2020-03-30 | US_ITS ---
EXAMINATION: US venous doppler [facility] DATE: 03/31/2020 14:55 INDICATION: Lower limb swelling TECHNIQUE: Ayala scale images without and with compression and Doppler images of the bilateral lower e xtremity veins were obtained. COMPARISON: 04/15/2017 FINDINGS: The right common femoral vein, profunda femoral vein, femoral vein, popliteal vein, peroneal trunk, p osterior tibial veins, and greater saphenous vein are patent. The left common femoral vein, profunda femoral vein, femoral vein, popliteal vein, peroneal trunk, po sterior tibial veins, and greater saphenous vein are patent. IMPRESSION: 1. Patent bilateral lower extremity veins. No evidence of deep venous thrombosis. Reviewed, dictated and finalized at location A. IMPRESSION: 1. Patent bilateral lower extremity veins. No evidence of deep venous thrombosi s.
--- NOTE | ~2020-03-30 | CT_ITS ---
EXAMINATION: CTA chest PE protocol EXAM DATE: 03/30/2020 23:21 INDICATION: Shortness of breath for 3 days. History of atrial fibrillation. TECHNIQUE: Spiral CTA of the chest (pulmonary arteries) was performed with 100 cc Omnipaque 350 intr avenous contrast injection. Images were acquired during the pulmonary arterial phase. Coronal maxi mum intensity projection 3D-reconstructions were created by the technologist on dedicated workstation . Axial, coronal and sagittal reformatted images were reviewed. The dose-length product (DLP) for t his examination was 947.39 mGy-cm. The exposure was tailored according to patient size (auto mA exp osure control), and iterative reconstruction (ASIR) was used as additional dose reduction technique. There is no prior study for comparison. FINDINGS: There are no pulmonary emboli in the 1st through 3rd order (central and interlobar) pulmon tavo arteries. Some loss of attenuation in the segmental pulmonary arteries due to respiratory motion , but no intraluminal filling defects suspected. No thoracic aortic dissection. Left upper lobe gr anuloma. Linear left upper lobe atelectasis. Small left pleural effusion. Tracheobronchial tree is p atent. There is no mediastinal, hilar or axillary lymphadenopathy. There is no pneumothorax. Th ere is cardiomegaly and pacemaker device. There is mild to moderate coronary arterial calcification, arterial sclerosis. Left adrenal nodule measuring 1.3 cm, probably adenoma. There is thoracic spon dylosis without osteoblastic or osteolytic lesions identified. IMPRESSION: 1. Limited segmental evaluation, but no pulmonary emboli are suspected. 2. Cardiomegaly, small left pleural effusion. Reviewed, dictated and finalized at location A.
[2020-03-30 20:38] VITALS: BP 148/98; PULSE 66; RESP 27; TEMP 36.1; O2SAT 92
--- NOTE | 2020-03-30 20:38 | ECG_ITS ---
Measurements Intervals [place] Rate: 70 P: [place]: 0 QRS: -73 QRSD: 186 T: 98 QT: 445 QTc: 483 Interpretive Statements ELECTRONIC VENTRICULAR PACEMAKER NO FURTHER INTERPRETATION IS POSSIBLE ATYPICAL ECG Electronically Signed On 03-31-2020 6:53:59 CDT by Karthik Hodges D.O.
[2020-03-30 20:48] VITALS: PULSE 71
[2020-03-30 21:15] LABS: Basophils Percent Auto 0.4 % (0.2-1.2); Eosinophils Absolute Auto 0.2 K/mm3 (0-0.3); Eosinophils Percent Auto 2.9 % (0-4.4); Hematocrit 34.5 % (42.0-52.0); Hemoglobin 11.3 g/dL (14.0-18.0); Immature Granulocyte Absolute 0.03 K/mm3 (0.00-0.031); Immature Granulocyte Percent A 0.4 % (0-0.5); Lymphocytes Absolute Auto 0.56 K/mm3 (0.9-3.2); Lymphocytes Percent Auto 8.2 % (18.3-44.2); Mean Corpuscular HGB Conc 32.8 g/dl (32-36); Mean Corpuscular Hemoglobin 31.2 pg (26-34); Mean Corpuscular Volume 95.3 fl (80-100); Mean Platelet Volume 11.3 fl (7.4-10.4); Monocytes Absolute Auto 0.7 K/mm3 (0.1-0.6); Monocytes Percent Auto 9.7 % (2.6-8.5); Neutrophils Absolute Auto 5.4 K/mm3 (1.3-6.7); Neutrophils Percent Auto 78.4 % (45.5-73.1); Platelet Count Result 129 k/mm3 (150-375); Red Blood Count 3.62 M/mm3 (4.6-6.20); Red Cell Distribution Width 15.9 % (11.5-14.5); White Blood Count 6.8 K/mm3 (4.5-10.0)
--- NOTE | 2020-03-30 21:15 | ED.GENADULT ---
HPI - General Adult General Chief complaint: Shortness of Breath/Dyspnea Stated complaint: SOB Time Seen by Provider: 03/30/20 20:45 Source: patient Mode of arrival: ambulatory History of Present Illness HPI narrative: Patient is a 79 y/o male complaining of moderate SOB for last 2 days. He states that exertion and laying aggravates his symptoms and resting helps. He also has some leg swelling. He denies chest pain, cough or fever. Related Data Home Medications Medication Instructions Recorded Confirmed furosemide 20 mg PO DAILY 09/18/19 03/31/20 lisinopril 20 mg PO DAILY 09/18/19 03/31/20 rosuvastatin 40 mg PO DAILY 09/18/19 03/31/20 terazosin 10 mg PO HS 09/18/19 03/31/20 tolterodine [Detrol] 2 mg PO Q12H 09/19/19 03/31/20 aspirin [Adult Low Dose Aspirin] 81 mg PO DAILY 03/31/20 03/31/20 metoprolol succinate 50 mg PO DAILY 03/31/20 03/31/20 Allergies Allergy/AdvReac Type Severity Reaction Status Date / Time Penicillins Allergy Unknown Other Verified 03/30/20 20:49 Review of Systems Constitutional: Constitutional: Denies chills, Denies fever(s), Denies headache(s) and Denies weakness Eyes: Eyes: Denies blurry vision ENT: Denies headache(s) and Denies neck pain Cardiovascular: Cardiovascular: Denies chest pain, Reports leg edema and Reports dyspnea Respiratory: Respiratory: Denies cough and Reports dyspnea Gastrointestinal: Gastrointestinal: Denies abdominal pain, Denies diarrhea, Denies nausea and Denies vomiting Genitourinary: Genitourinary: Denies hematuria and Denies dysuria Musculoskeletal: Musculoskeletal: Denies back pain and Denies neck pain Neurologic: Denies headache(s) and Denies weakness [facility] Past Medical History Medical History (Updated 03/31/20 @ 16:02 by Nicki Gutierrez MD) Cardiomyopathy Coronary artery disease History of pacemaker Hypertension Pacemaker Sick sinus syndrome Surgical History Surgical History (Updated 03/31/20 @ 09:01 by Shanell Black PA-C) H/O cardiac catheterization History of bilateral knee arthroplasty History of tonsillectomy Family History Family History Sibling Cerebrovascular accident Malignant neoplasm of prostate Acute myocardial infarction Family history of malignant neoplasm of brain Patient's sister is Patient's brother is Mother Family history of diabetes mellitus in first degree relative Family history of congestive heart failure Patient's mother is Father Acute myocardial infarction Patient's father is Social History Social History (Updated 03/31/20 @ 09:02 by Shanell Black PA-C) Social History: patient is a lifelong nonsmoker and denies drug use, marijuana use, or alcohol use. 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 He designates his daughter Katy to be his surrogate decision maker in the event that he cannot make his own decisions. He would like to be full code Smoking status: Never smoker Alcohol intake: never Substance use: never Substance use type: does not use Gender identity (if verbalized by the patient): Male Spiritual care concerns: No Agree to blood products: Yes Exam Const: General: no acute distress and well developed Orientation/consciousness: oriented to person, oriented to place, oriented to time and patient oriented x3 HENMT: Head: normocephalic Ears: external ears normal General nose exam: Normal external nose present Eyes: General: appearance normal, both eyes and all related structures Conjunctivae: conjunctivae normal Neck: Neck: normal visual inspection and full ROM Chest: Chest palpation & inspection: normal inspection of the chest and no tenderness Resp: Effort & Inspection: normal respiratory effort Auscultation: clear to auscultation bilaterally Cardio: Rate: regular rate Rhythm: regular rhythm GI: GI Palp: No abdominal tenderness and Ye
--- NOTE | 2020-03-30 21:21 | PC.NURSE ---
Called lab to add on D-Dimer, Trop Baseline, BNP
[2020-03-30 21:28] LABS: Anion Gap 10.7 mmol/L (7-16); Blood Urea Nitrogen 13 mg/dL (9-20); Calcium 8.4 mg/dL (8.4-10.2); Carbon Dioxide 24 mmol/L (22-30); Chloride 109 mmol/L (98-107); Estimated CRCL calculation 110 ml/min; Estimated Glomerular Filt Rate > 60; Glucose 163 mg/dL (75-110); Potassium 3.7 mmol/L (3.4-5.0); Sodium 140 mmol/L (137-145)
[2020-03-30 21:40] LABS: NT Pro B Type Natriuretic Pept 3110 PG/ML (5-100)
[2020-03-30 22:21] LABS: Troponin I 0.027 ng/mL (0.000-0.034)
[2020-03-30 23:43] VITALS: BP 158/101; PULSE 65; RESP 23; O2SAT 93
[2020-03-30] MEDS: FUROSEMIDE INJ 40 MG/4 ML VIAL IV PUSH (23:43)
[2020-03-31] VITALS (13 sets, daily range): BP systolic 128–185; BP diastolic 62–98; PULSE 64–79; RESP 15–25; TEMP 35.5–36.8; O2SAT 95–98; BMI 50.7
[2020-03-31 00:43] LABS: Troponin I 0.034 ng/mL (0.000-0.034)
--- NOTE | 2020-03-31 02:43 | PCRCNOTE ---
ADMISSION SUMMARY STATES THAT PT USES CPAP AT HOME. OFFERED HOSPITAL CPAP TO PT AND HE REFUSED.
--- NOTE | 2020-03-31 04:28 | ECHO_ITS ---
Patient Info Name: Thee Amanda Age: 79 years : 1940 Gender: Male Ht: 66 in Wt: 314 lbs BSA: 2.66 m2 HR: 69 bpm BP: 163 / 93 mmHg Heart Rhythm: Atrial Fibrillation, Paced Technical Quality: Fair Exam Date: 03/31/2020 10:13 AM Exam Location: [facility] Pulmonary Patient Status: Inpatient Admit Date: 03/31/2020 Staff Ordering Physician: Joel Renteria MD Investigator Cash Shortage: Eva Stoddard RDCS Attending Provider: Shanell Black PA-C Referring Physician: Dexter ARMSTRONG; Exam Type: CA echo dop color flow w con Study Info Indications I50.9 - Heart failure, unspecified Complete two-dimensional, color flow and Doppler transthoracic echocardiogram is performed with contrast to opacify the left ventricle and to improve the deliniation of the left ventricle endocardial borders. Contrast/Agitated Saline Contrast/Ag. Saline: Definity Amount: 1.00 ml IV Access Condition: patent with no signs of infiltration Summary 1. Normal left ventricular size and thickness with mild global hypokinesis present. Calculated ejection fraction 56%, visual EF is 45-50%. Diastolic dysfunction is present. The septum is flattened during diastole consistent with right ventricular volume overload and there is abnormal septal motion secondary to pacing artifact. 2. Right ventricular chamber dimension is mildly enlarged with mild global hypokinesis. 3. Left atrial chamber dimension is severely enlarged. 4. Right atrial chamber dimension is moderately enlarged. 5. Mildly calcified aortic valve without significant stenosis. There is mild aortic valve regurgitation. 6. There is mild to moderate mitral valve regurgitation. 7. There is moderate tricuspid valve regurgitation. 8. Moderate pulmonary hypertension, estimated pulmonary arterial systolic pressure is 63 mmHg. 9. Dilated inferior vena cava with <50% collapse upon inspiration consistent with significantly elevated right atrial pressure, 10 mmHg. 10. The aortic root size at the sinus of Valsalva is borderline dilated, 3.9 cm. 11. Possible left pleural effusion. 12. Underlying rhythm is atrial fibrillation with ventricular pacing. Left Ventricle Left ventricular chamber dimension is normal. Left ventricular systolic function is mildly reduced, estimated at 45-50%. There is no increased left ventricular wall thickness. Left ventricular septal wall motion is abnormal with septal motion related to pacing. The left ventricular diastolic function is abnormal. Right Ventricle Right ventricular chamber dimension is mildly enlarged with mild global hypokinesis. Right ventricular systolic function is reduced. Linear artifact in right ventricle suggestive of catheter(s), pacemaker lead(s), or ICD lead(s). Left Atria Left atrial chamber dimension is severely enlarged. Right Atria Right atrial chamber dimension is moderately enlarged. Aortic Valve The aortic valve is trileaflet. There is no aortic valve sclerosis. There is no aortic valve stenosis. Mildly calcified aortic valve without significant stenosis. There is mild aortic valve regurgitation. There is mild aortic valve calcification. Pulmonic Valve The pulmonic valve is normal. There is no pulmonic valve stenosis. There is no pulmonic regurgitation. Mitral Valve The mitral valve has normal leaflets. There is no mitral valve stenosis. There is mild to moderate mitral valve regurgitation. Tricuspid Valve The tricuspid valve leaflets are normal
[2020-03-31 05:36] LABS: Basophils Percent Auto 0.3 % (0.2-1.2); Eosinophils Absolute Auto 0.2 K/mm3 (0-0.3); Eosinophils Percent Auto 2.8 % (0-4.4); Hematocrit 34.5 % (42.0-52.0); Hemoglobin 11.1 g/dL (14.0-18.0); Immature Granulocyte Absolute 0.03 K/mm3 (0.00-0.031); Immature Granulocyte Percent A 0.4 % (0-0.5); Lymphocytes Absolute Auto 0.73 K/mm3 (0.9-3.2); Lymphocytes Percent Auto 10.7 % (18.3-44.2); Mean Corpuscular HGB Conc 32.2 g/dl (32-36); Mean Corpuscular Hemoglobin 30.7 pg (26-34); Mean Corpuscular Volume 95.6 fl (80-100); Mean Platelet Volume 12.1 fl (7.4-10.4); Monocytes Absolute Auto 0.8 K/mm3 (0.1-0.6); Monocytes Percent Auto 11.9 % (2.6-8.5); Neutrophils Percent Auto 73.9 % (45.5-73.1); Platelet Count Result 133 k/mm3 (150-375); Red Blood Count 3.61 M/mm3 (4.6-6.20); Red Cell Distribution Width 15.8 % (11.5-14.5); White Blood Count 6.8 K/mm3 (4.5-10.0)
--- NOTE | 2020-03-31 08:20 | ECG_ITS ---
Measurements Intervals [place] Rate: 68 P: [place]: 0 QRS: -72 QRSD: 208 T: 105 QT: 513 QTc: 547 Interpretive Statements ELECTRONIC VENTRICULAR PACEMAKER VENTRICULAR COUPLET BASELINE ARTIFACT- V1 NO FURTHER INTERPRETATION IS POSSIBLE ATYPICAL ECG Electronically Signed On 03-31-2020 8:48:04 CDT by Karthik Hodges D.O.
[2020-03-31] MEDS: FUROSEMIDE INJ 40 MG/4 ML VIAL IV PUSH (08:35)
[2020-03-31] MEDS: lisinopriL 20 MG TABLET PO (08:36)
[2020-03-31] MEDS: ASPIRIN 81 MG ENTERIC TABLET PO (08:36)
[2020-03-31] MEDS: ROSUVASTATIN 10 MG TABLET 40 MG PO (08:37)
[2020-03-31] MEDS: METOPROLOL SUCCINATE EXT REL 50 MG TABCR PO (08:37)
--- NOTE | 2020-03-31 08:47 | PC.NURSE ---
Call to pharmacy to request patient's 0900 detrol be sent to floor for administration.
--- NOTE | 2020-03-31 08:54 | PM.IMHP ---
H&P: HPI History of Present Illness Date/Time: 03/31/20 08:54 Chief complaint: chf Narrative: Thee Amanda Sr. is a 79 year old male with a past medical history of cardiomyopathy, CAD with stents in 2016, a flutter status post pacemaker and off anticoagulation, with hypertension who presented emergency room for shortness of breath. Patient states the shortness of breath started on Saturday and seem to be gradual. He says it is worse when he is walking around doing things such as going to the bathroom and better when he sits down. Prior to Saturday, he has not had any dyspnea on exertion was able to walk into the grocery store and walk around the block without issues. he is able to lay flat without issue. He has Noticed in the last couple weeks that his lower extremities have been swelling. He denies scrotal or abdominal swelling with that. He has not had any change in diet. He does mention that he stopped taking his Lasix 2-3 months ago after it was never renewed. He was hospitalized back in August and did not follow[facility] with [facility]. He sees Dr. Sotelo who recommended him stopping his Xarelto and has put him on a 81 mg aspirin. He has not had any issues with a GI bleed since August. His last heart catheterization was in 2015 with a stent and thinks he might have had a chemical stress test after that but does not know for sure. He had a bowel movement yesterday which was normal for him. He denies nausea, vomiting, fevers, chills, flu-like symptoms, COVID-19 symptoms, diarrhea or constipation. Prior to my arrival, the patient stated that he started having vibrating/stabbing chest pain that was left-sided and spanned across his chest. This was not associated with shortness of breath or diaphoresis but he did have some numbness and tingling in his left arm. This lasted about 15 minutes and was a 7/10 pain during it. By the time I got to the room, it had improved to 4/10. When I palpated his chest, he said it reproduced the pain and when I palpated it, it was back to a 7/10 while I was pressing. He did not have any lightheadedness, dizziness, tunnel vision with this. Review of Systems Review of Systems: All systems reviewed & are unremarkable except as noted in HPI and below PMFSH Past Medical History Medical History (Updated 03/31/20 @ 09:01 by Shanell Black PA-C) Cardiomyopathy Coronary artery disease History of pacemaker Hypertension Pacemaker Sick sinus syndrome Surgical History Surgical History (Updated 03/31/20 @ 09:01 by Shanell Black PA-C) H/O cardiac catheterization History of bilateral knee arthroplasty History of tonsillectomy Family History Family History Sibling Cerebrovascular accident Malignant neoplasm of prostate Acute myocardial infarction Family history of malignant neoplasm of brain Patient's sister is Patient's brother is Mother Family history of diabetes mellitus in first degree relative Family history of congestive heart failure Patient's mother is Father Acute myocardial infarction Patient's father is Social History Social History (Updated 03/31/20 @ 09:02 by Shanell Black PA-C) Social History: patient is a lifelong nonsmoker and denies drug use, marijuana use, or alcohol use. 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 He designates his daughter Katy to be his surrogate decision maker in the event that he cannot make his own decisions. He would like to be full code Smoking status: Never smoker Alcohol intake: never Substance use: never Substance use type: does not use Gender identity (if verbalized by the patient): Male Spiritual care concerns: No Agree to blood products: Yes Meds Home Medications and Allergies Home Medications Medication Instructions Recorded Confirmed Type furosemide 20 mg P
--- NOTE | 2020-03-31 08:57 | PC.NURSE ---
0820 Pt c/o of [place][ chest pain. BP 145/73 resp 22, 95%ra and Paced 66 on tele. Pt c/o of a little SOB. Shanell Krishna notified and new orders recieved. She will be down to see patient.
[2020-03-31 09:37] LABS: Creatine Kinase MB 3.3 ng/mL (0.0-2.37); Troponin I 0.031 ng/mL (0.000-0.034)
[2020-03-31] MEDS: PERFLUTREN LIPID MICROSPHERES 1.5 ML VIAL DILUTED TO 10 ML TOTAL VOLUME IV PUSH (11:13)
[2020-03-31] MEDS: TOLTERODINE TARTRATE 2 MG TABLET PO ×2 (11:35→20:15)
--- NOTE | 2020-03-31 14:17 | WPDCN ---
Assessment and Plan Assessment and plan (1) Acute diastolic CHF (congestive heart failure): Code(s): I50.31 - Acute diastolic (congestive) heart failure Status: Acute Assessment and Plan: New onset of acute diastolic CHF. Mild cardiomyopathy, EF 45-50%. Diuresing well and feeling better. Continue furosemide 40 mg IV push Q a.m.. , perhaps tomorrow can switch to p.o.? Discussed sodium restriction. Patient may need to increase his home furosemide on discharge. BP is occasionally high which may be contributing to problems. Patient has an office visit with me later on this month. Check a.m. BMP. (2) Atypical chest pain: Code(s): R07.89 - Other chest pain Status: Acute Assessment and Plan: Episode of atypical chest pain today. Troponins are negative. No further evaluation at this time. (3) Pacemaker: Code(s): Z95.0 - Presence of cardiac pacemaker Status: Acute Assessment and Plan: Followed in our office, 8-9 years longevity. (4) Atrial fibrillation, chronic: Code(s): I48.20 - Chronic atrial fibrillation, unspecified Status: Acute Assessment and Plan: Chronic atrial fibrillation with a controlled rate. Unable to tolerate anticoagulation secondary to recurrent anemia and GI bleeding. Patient declined Watchman Left atrial appendage occlusion device. He is taking aspirin but that is not very protective against cardioembolic stroke. Reviewed risk of stroke with patient and daughter, suggested he consider Watchman left atrial appendage occlusion to reduce stroke risk. (5) Pulmonary hypertension: Code(s): I27.20 - Pulmonary hypertension, unspecified Status: Acute Assessment and Plan: Has pulmonary hypertension likely secondary to diastolic dysfunction and sleep apnea. Intolerant of CPAP. Encouraged to follow-up with a sleep medicine doctor to find a better fitting mask. (6) Coronary artery disease: Qualifiers: Coronary Disease-Associated Artery/Lesion type: [place] artery [place] vs. transplanted heart: [place] heart Associated angina: without angina Qualified Code(s): I25.10 - Atherosclerotic heart disease of [place] coronary artery without angina pectoris Code(s): I25.10 - Atherosclerotic heart disease of [place] coronary artery without angina pectoris Status: Acute Assessment and Plan: History of Left anterior descending stent with residual PDA disease, history of infrequent exertional angina. Continue aspirin, statin and blood pressure control. Check lipids. (7) Hypertension: Code(s): I10 - Essential (primary) hypertension Status: Acute Assessment and Plan: Blood pressure up and down, will continue to follow. HPI Data of Consult Date/Time: 03/31/20 14:17 Requesting Physician: Shanell Black PA-C Primary Care Provider: Benjy Sotelo, Consult Narrative Narrative: Date of service: 03/31/2020 Thee Amanda Sr. is a 79 year old male We were asked to see at the request of the hospitalist Shanell Black for our advice and opinion regarding his chest discomfort and CHF in consultation. Mr. Amanda has chronic atrial flutter, status post Biotronik pacemaker implant in 2017 for chronic bradycardia. He has been intolerant of anticoagulation secondary to recurrent GI bleeding. The patient chose not to follow-up for a Watchman left atrial appendage occlusion device. History of CAD status post Left anterior descending stent in January 2017 with residual PDA disease treated medically, with occasional angina. Mild cardiomyopathy, EF 45-50% in 2016 improved to 55-60% in August 27, 2019. He has some chronic MEZA and mild edema. No actual history of CHF. H
[2020-03-31] MEDS: TERAZOSIN HCL 5 MG CAPSULE 10 MG PO (20:15)
[2020-03-31 20:23] LABS: Troponin I 0.029 ng/mL (0.000-0.034)
[2020-04-01] VITALS (10 sets, daily range): BP systolic 122–140; BP diastolic 84–88; PULSE 63–79; RESP 18–20; TEMP 35.8–36.4; O2SAT 93–97
[2020-04-01 05:27] LABS: Hematocrit 33.7 % (42.0-52.0)
[2020-04-01 05:46] LABS: Alanine Aminotransferase 16 U/L (4-50); Albumin Level 3.4 g/dL (3.5-5.1); Alkaline Phosphatase 69 U/L (38-126); Anion Gap 8.6 mmol/L (7-16); Aspartate Amino Transferase 28 U/L (17-59); Bilirubin,Total 1.2 mg/dL (0.2-1.3); Blood Urea Nitrogen 12 mg/dL (9-20); Calcium 8.2 mg/dL (8.4-10.2); Carbon Dioxide 29 mmol/L (22-30); Chloride 105 mmol/L (98-107); Cholesterol 71 mg/dL (0-200); Estimated CRCL calculation 102 ml/min; Estimated Glomerular Filt Rate > 60; Glucose 98 mg/dL (75-110); Magnesium 2.2 mg/dL (1.6-2.3); Potassium 3.6 mmol/L (3.4-5.0); Sodium 139 mmol/L (137-145)
[2020-04-01 06:04] LABS: LDL Cholesterol Direct < 30 mg/dL
[2020-04-01] MEDS: lisinopriL 20 MG TABLET PO (08:04)
[2020-04-01] MEDS: FUROSEMIDE INJ 40 MG/4 ML VIAL IV PUSH (08:04)
[2020-04-01] MEDS: ROSUVASTATIN 10 MG TABLET 40 MG PO (08:04)
[2020-04-01] MEDS: ASPIRIN 81 MG ENTERIC TABLET PO (08:04)
[2020-04-01] MEDS: METOPROLOL SUCCINATE EXT REL 50 MG TABCR PO (08:05)
[2020-04-01] MEDS: TOLTERODINE TARTRATE 2 MG TABLET PO ×2 (08:05→20:58)
--- NOTE | 2020-04-01 09:49 | PM.IMPN ---
Progress Note: A&P Assessment and Plan (1) Acute combined systolic and diastolic congestive heart failure: Code(s): I50.41 - Acute combined systolic (congestive) and diastolic (congestive) heart failure Status: Acute Assessment and Plan: ----- The patient is improving with IV Lasix and got 2580 mL of fluid off yesterday. His shortness of breath is better but he still having some lower extremity edema which has improved. he got the IV Lasix today and hopefully he can discharge tomorrow. will evaluate him tomorrow morning to see if he needs another IV Lasix before he discharges or he if he can be transition to oral tomorrow. (2) Atypical chest pain: Code(s): R07.89 - Other chest pain Status: Acute Assessment and Plan: ----- Resolved, troponins negative. No further chest pain. Likely related to CHF, no ACS suspected. (3) Atrial fibrillation, chronic: Code(s): I48.20 - Chronic atrial fibrillation, unspecified Status: Acute Assessment and Plan: ----- status post ventricular pacemaker off anticoagulation due to a GI bleed earlier this year. (4) Cardiomyopathy: Qualifiers: Cardiomyopathy type: ischemic Qualified Code(s): I25.5 - Ischemic cardiomyopathy Code(s): I42.9 - Cardiomyopathy, unspecified Status: Acute Assessment and Plan: ----- See above (5) Coronary artery disease: Qualifiers: Coronary Disease-Associated Artery/Lesion type: [place] artery [place] vs. transplanted heart: [place] heart Associated angina: without angina Qualified Code(s): I25.10 - Atherosclerotic heart disease of [place] coronary artery without angina pectoris Code(s): I25.10 - Atherosclerotic heart disease of [place] coronary artery without angina pectoris Status: Acute Assessment and Plan: ----- see above, continue lisinopril, metoprolol and aspirin. Time Spent With Patient Time with patient: 25 - 35 minutes Subjective Date/time seen: 04/01/20 09:49 Interval history: Pt is a 79-year-old male here for CHF exacerbation. Patient was seen today and states his breathing is much better. He is not short of breath at rest and is not feeling any dyspnea on exertion when going to the bathroom. This has improved since when he came in. He states his legs are still swollen but thinks they are better. He is urinating a lot. He denies any further chest pain. He reports no diarrhea, constipation, abdominal pain, fevers or chills. Review of Systems Review of Systems: All systems reviewed & are unremarkable except as noted in HPI and below Exam Narrative: Exam Narrative: General: overweight patient resting comfortably in bed in no acute distress. No diaphoresis HEENT: Normocephalic, atraumatic, PERRL, Sclerae anicteric, oral mucosa moist. Neck: Supple Resp: CTA today, no crackles Heart: RRR. ventricular paced on telemetry, occasional PVC Abd: Soft, nontender. No pain to palpation. Positive bowel sounds. Umbilical hernia Skin: Warm and dry Extremities: 1+ pitting edema up to the knee Left leg better with 1+ to the mid miles. No pain to palpation Neuro: Alert and Oriented x4 . CN 2-12 intact. No focal neurological deficits. Objective Data Vital Signs Vital Signs: Vital Signs - 24 hr 03/31/20 12:00 03/31/20 14:00 03/31/20 16:00 Temperature 98.1 F Pulse Rate 64 79 71 Respiratory Rate 15 Blood Pressure 128/62 Pulse Oximetry 98 03/31/20 20:00 03/31/20 21:50 04/01/20 00:00 Temperature 95.9 F L Pulse Rate 65 69 63 Respiratory Rate 18 Blood Pressure 149/87 H Pulse Oximetry 95 04/01/20 04:00 04/01/20 05:52 04/01/20 08:05 Temperature 96.5 F L Pulse Rate 78 79 72 Respiratory Rate 18 Blood Pressure 127/88 Pulse Oximetry 97 Intake/Output Intake/Output: Intake & Output 03/29/20 03/30/20 03/31/20 04/01/20 23:59 23:59 23:59 23:59 Intake Total 2300 910
--- NOTE | 2020-04-01 13:38 | PM.PNCARD ---
Progress Note: A&P Assessment and Plan (1) Acute diastolic CHF (congestive heart failure): Code(s): I50.31 - Acute diastolic (congestive) heart failure Status: Acute Assessment and Plan: New onset of acute diastolic CHF. Mild cardiomyopathy, EF 45-50%. Diuresing well. Discussed sodium restriction. He states he uses a1/2 salt. Lasix stopped as the pharmacy did not fill it. Instructed if this is a problem again he is to call the office so we can follow up. May need 40 mg of furosemide daily for at least a week, check BMP and decreased to 20 mg daily. BP is occasionally high which may be contributing to problems. Has office appointment with Dr Allan on May 04, 2020 (2) Atypical chest pain: Code(s): R07.89 - Other chest pain Status: Acute Assessment and Plan: Episode of atypical chest pain today. Troponins are negative. No further evaluation at this time. (3) Pacemaker: Code(s): Z95.0 - Presence of cardiac pacemaker Status: Acute Assessment and Plan: Followed in our office, 8-9 years longevity. (4) Atrial fibrillation, chronic: Code(s): I48.20 - Chronic atrial fibrillation, unspecified Status: Acute Assessment and Plan: Chronic atrial fibrillation with a controlled rate. Unable to tolerate anticoagulation secondary to recurrent anemia and GI bleeding. He declined Watchman left atrial appendage occlusion device. He is taking aspirin but that is not very protective against cardioembolic stroke. Dr Allan reviewed risk of stroke with him and his daughter 03/31/2020. She suggested he consider Watchman left atrial appendage occlusion to reduce stroke risk. (5) Pulmonary hypertension: Code(s): I27.20 - Pulmonary hypertension, unspecified Status: Acute Assessment and Plan: Has pulmonary hypertension likely secondary to diastolic dysfunction and sleep apnea. Intolerant of CPAP. Encouraged to follow-up with a sleep medicine doctor to find a better fitting mask. (6) Coronary artery disease: Qualifiers: Coronary Disease-Associated Artery/Lesion type: [place] artery [place] vs. transplanted heart: [place] heart Associated angina: without angina Qualified Code(s): I25.10 - Atherosclerotic heart disease of [place] coronary artery without angina pectoris Code(s): I25.10 - Atherosclerotic heart disease of [place] coronary artery without angina pectoris Status: Acute Assessment and Plan: History of Left anterior descending stent with residual PDA disease, history of infrequent exertional angina. Continue aspirin, statin and blood pressure control. Total cholesterol 71. LDL direct less than 30. Will decrease rosuvastatin to 20 mg daily. (7) Hypertension: Qualifiers: Hypertension type: essential hypertension Qualified Code(s): I10 - Essential (primary) hypertension Code(s): I10 - Essential (primary) hypertension Status: Acute Assessment and Plan: Blood pressure up and down, will continue to follow. Additional Plan Most likely will be ready to go home tomorrow. Follow up with Dr Allan in the office as scheduled. See discharge instructions for follow-up. Plan discussed with Dr. Suyapa Yun 04/01/2020 Time Spent With Patient Time with patient: less than 15 minutes Subjective Date/time seen: 04/01/20 13:38 Interval history: Follow-up for: Acute diastolic heart failure, EF 45-50%, atypical chest pain, pulmonary hypertension, systemic hypertension,permanent atrial fibrillation, history of GI bleed. Date of service: 04/01/2020 Subjective: Denied chest discomfort. Breathing is improved. Lower extremity edema he be
[2020-04-01] MEDS: TERAZOSIN HCL 5 MG CAPSULE 10 MG PO (20:58)
[2020-04-02] VITALS (8 sets, daily range): BP systolic 106–145; BP diastolic 63–83; PULSE 64–73; RESP 16–20; TEMP 36.2–36.3; O2SAT 92–96
[2020-04-02 05:49] LABS: Anion Gap 5 mmol/L (8-16); Blood Urea Nitrogen 16 mg/dL (9-20); Calcium 8.4 mg/dL (8.4-10.2); Carbon Dioxide 30 mmol/L (22-30); Chloride 104 mmol/L (98-107); Estimated CRCL calculation 104 ml/min; Estimated Glomerular Filt Rate > 60; Glucose 100 mg/dL (75-110); Potassium 3.7 mmol/L (3.4-5.0); Sodium 139 mmol/L (137-145)
[2020-04-02] MEDS: ASPIRIN 81 MG ENTERIC TABLET PO (08:56)
[2020-04-02] MEDS: ROSUVASTATIN 10 MG TABLET 40 MG PO (08:56)
[2020-04-02] MEDS: METOPROLOL SUCCINATE EXT REL 50 MG TABCR PO (08:56)
[2020-04-02] MEDS: FUROSEMIDE INJ 40 MG/4 ML VIAL IV PUSH (08:56)
[2020-04-02] MEDS: lisinopriL 20 MG TABLET PO (08:56)
[2020-04-02] MEDS: TOLTERODINE TARTRATE 2 MG TABLET PO (08:57)
--- NOTE | 2020-04-02 09:45 | PC.NURSE ---
Patient c/o feeling dizzy and lightheaded following Lasix administration. Patient has urinated large amounts since receiving Lasix and continues to do so. VSS - HR 64, pulse ox 96%, BP 145/83, RR 20. Patient given saltine crackers and instructed to call for assistance. Bed alarm initiated
--- NOTE | 2020-04-02 13:13 | PM.PNCARD ---
Progress Note: A&P Assessment and Plan (1) Acute diastolic CHF (congestive heart failure): Code(s): I50.31 - Acute diastolic (congestive) heart failure Status: Acute Assessment and Plan: New onset of acute diastolic CHF. Mild cardiomyopathy, EF 45-50%. Diuresed well, OK for discharge. Encouraging sodium restriction. He states he uses a 1/2 salt. Lasix stopped as the pharmacy did not fill it. Instructed if this is a problem again he is to call the office so we can follow up. BP is occasionally high which may be contributing to problems, though better since he has been diuresed Ordered 40 mg of furosemide daily until SaturdayApril 09 then reduced to 20 mg daily. [facility] on 04/11/2020 Has office appointment with Dr Allan on May 04, 2020 (2) Atypical chest pain: Code(s): R07.89 - Other chest pain Status: Acute Assessment and Plan: Episode of atypical chest pain earlier this admission. Troponins are negative. No further evaluation at this time. (3) Pacemaker: Code(s): Z95.0 - Presence of cardiac pacemaker Status: Acute Assessment and Plan: Followed in our office, 8-9 years longevity. (4) Atrial fibrillation, chronic: Code(s): I48.20 - Chronic atrial fibrillation, unspecified Status: Acute Assessment and Plan: Chronic atrial fibrillation with a controlled rate. Unable to tolerate anticoagulation secondary to recurrent anemia and GI bleeding. He declined Watchman left atrial appendage occlusion device. He is taking aspirin but that is not very protective against cardioembolic stroke. Dr Allan reviewed risk of stroke with him and his daughter 03/31/2020. She suggested he consider Watchman left atrial appendage occlusion to reduce stroke risk. (5) Pulmonary hypertension: Code(s): I27.20 - Pulmonary hypertension, unspecified Status: Acute Assessment and Plan: Has pulmonary hypertension likely secondary to diastolic dysfunction and sleep apnea. Intolerant of CPAP. Encouraged to follow-up with a sleep medicine doctor to find a better fitting mask. (6) Coronary artery disease: Qualifiers: Associated angina: without angina Coronary Disease-Associated Artery/Lesion type: [place] artery [place] vs. transplanted heart: [place] heart Qualified Code(s): I25.10 - Atherosclerotic heart disease of [place] coronary artery without angina pectoris Code(s): I25.10 - Atherosclerotic heart disease of [place] coronary artery without angina pectoris Status: Acute Assessment and Plan: History of Left anterior descending stent with residual PDA disease, history of infrequent exertional angina. Continue aspirin, statin and blood pressure control. Total cholesterol 71. LDL direct less than 30. Will decrease rosuvastatin to 20 mg daily. (7) Hypertension: Qualifiers: Hypertension type: essential hypertension Qualified Code(s): I10 - Essential (primary) hypertension Code(s): I10 - Essential (primary) hypertension Status: Acute Assessment and Plan: Blood pressure up and down, will continue to follow. Subjective Date/time seen: 04/02/20 13:13 Interval history: Follow-up for: Acute diastolic heart failure, EF 45-50%. Reports he ran out of Lasix 3 months ago and there were no refills available. Also: atypical chest pain, pulmonary hypertension, systemic hypertension,permanent atrial fibrillation, history of GI bleed. Visit 04/01/2020 Subjective: Denied chest discomfort. Breathing is improved. Lower extremity edema he believes is at baseline. No lightheadedness. Date of service: 04/02/2020: Feels mostly back to normal. Walking to
--- NOTE | 2020-04-02 15:43 | PM.DS ---
DS: Admitting Diagnosis Admitting Diagnosis Admitting Diagnosis: Other chest pain DS: Discharge Diagnosis Discharge Diagnosis (1) Acute combined systolic and diastolic congestive heart failure: Code(s): I50.41 - Acute combined systolic (congestive) and diastolic (congestive) heart failure Status: Acute Assessment and Plan: ----- The patient Improved And back to baseline with IV Lasix and was sent home with new prescription of Lasix. he is going to follow-up with the cardiology group and has an appointment set. (2) Atypical chest pain: Code(s): R07.89 - Other chest pain Status: Acute Assessment and Plan: ----- Resolved, troponins negative. No further chest pain. Likely related to CHF, no ACS suspected. (3) Atrial fibrillation, chronic: Code(s): I48.20 - Chronic atrial fibrillation, unspecified Status: Acute Assessment and Plan: ----- status post ventricular pacemaker off anticoagulation due to a GI bleed earlier this year. (4) Cardiomyopathy: Qualifiers: Cardiomyopathy type: ischemic Qualified Code(s): I25.5 - Ischemic cardiomyopathy Code(s): I42.9 - Cardiomyopathy, unspecified Status: Acute Assessment and Plan: ----- See above (5) Coronary artery disease: Qualifiers: Associated angina: without angina Coronary Disease-Associated Artery/Lesion type: [place] artery [place] vs. transplanted heart: [place] heart Qualified Code(s): I25.10 - Atherosclerotic heart disease of [place] coronary artery without angina pectoris Code(s): I25.10 - Atherosclerotic heart disease of [place] coronary artery without angina pectoris Status: Acute Assessment and Plan: ----- see above, continue lisinopril, metoprolol and aspirin. DS: Summary Hospital Course Reason for hospitalization: CHF exacerbation Hospital Course: patient is a 79-year-old male without past medical history of CHF who stop taking his Lasix about 2 months ago who presented emergency room for shortness of breath and chest pain Found to be in CHF exacerbation. Vitals in the ER were stable. Initial white blood cell count 6.8, hemoglobin 11.1, hematocrit 34.5, platelets 133. BMP within normal limits with exception of random glucose 163. EKG revealed normal rate and no acute changes with paced rhythm. CTA had a limited segmental evaluation but no pulmonary emboli were suspected and he had cardiomegaly with small left pleural effusion. Since he had elevated D-dimer of venous Doppler was performed which was negative. Patient was admitted to the hospitalist service and started on IV Lasix and improved. The day of discharge his says shortness of breath had resolved and felt back to baseline. He underwent an echo which is detailed below. He saw Cardiology why he was here and medications were adjusted and follow-up was recommended. The patient had no complaints the day of discharge. He was educated about the worrisome signs and symptoms to come back to emergency room for and was discharged stable condition. Summary 1. Normal left ventricular size and thickness with mild global hypokinesis present. Calculated ejection fraction 56%, visual EF is 45-50%. Diastolic dysfunction is present. The septum is flattened during diastole consistent with right ventricular volume overload and there is abnormal septal motion secondary to pacing artifact. 2. Right ventricular chamber dimension is mildly enlarged with mild global hypokinesis. 3. Left atrial chamber dimension is severely enlarged. 4. Right atrial chamber dimension is moderately enlarged. 5. Mildly calcified aortic valve without significant stenosis. There is mild aortic valve regurgitation. 6. There is mild to moderate mitral valve regurgitation. 7. There is moderate tricuspid valve regurgitation. 8. Moderate pulmonary hypertension, estimated pulmonary arterial systolic
== END 2020-04-02 16:40 | disposition home or self-care (01) ==
LOC: ANHED 03-31 00:08 → ANH2MED 03-31 00:38
PROVIDERS: Emergency Medicine; Internal Medicine Cardiovascular Disease; Physician Assistant; Admitting Provider Family Medicine; Emergency Provider Emergency Medicine; PCP Internal Medicine; Visit Provider Internal Medicine
DX: I11.0 Hypertensive heart disease with heart failure (principal); I50.41 Acute combined systolic (congestive) and diastolic (congestive) heart failure; I48.20 Chronic atrial fibrillation, unspecified; I27.20 Pulmonary hypertension, unspecified; I49.5 Sick sinus syndrome; I25.5 Ischemic cardiomyopathy; I25.10 Atherosclerotic heart disease of native coronary artery without angina pectoris; E66.01 Morbid (severe) obesity due to excess calories; R60.0 Localized edema; Z95.5 Presence of coronary angioplasty implant and graft; Z96.653 Presence of artificial knee joint, bilateral; Z95.0 Presence of cardiac pacemaker; Z68.43 Body mass index [BMI] 50.0-59.9, adult
CPT/HCPCS: 36415; 71046; 71275; 80048; 80076; 82465; 82553; 83721; 83735; 83880; 84443; 84484; 85014; 85018; 85025; 85380; 93005; 93970; 96374; 96375; 96376; 99285; A9270; C8929; G0378; J1940; Q9957; Q9967

== ENCOUNTER 2020-11-09 12:30 | Outpatient (CLI) | payer OTHER, SELFPAY ==
[2020-11-09 13:14] LABS: Hematocrit 38.5 % (42.0-52.0); Hemoglobin 12.7 g/dL (14.0-18.0); Mean Corpuscular Hemoglobin 32.6 pg (26-34); Mean Corpuscular Volume 98.7 fl (80-100); Mean Platelet Volume 11.7 fl (7.4-10.4); Platelet Count Result 156 k/mm3 (150-375); Red Cell Distribution Width 14.2 % (11.5-14.5); White Blood Count 6.8 K/mm3 (4.5-10.0)
[2020-11-09 13:22] LABS: Anion Gap 5 mmol/L (8-16); Blood Urea Nitrogen 17 mg/dL (9-20); Calcium 8.9 mg/dL (8.4-10.2); Carbon Dioxide 31 mmol/L (22-30); Chloride 106 mmol/L (98-107); Estimated Glomerular Filt Rate > 60; Glucose 95 mg/dL (75-110); Potassium 4.6 mmol/L (3.4-5.0); Sodium 142 mmol/L (137-145)
== END 2020-11-09 12:31 | disposition home or self-care (01) ==
PROVIDERS: PCP Internal Medicine; Visit Provider Internal Medicine Cardiovascular Disease
DX: I25.118 Atherosclerotic heart disease of native coronary artery with other forms of angina pectoris (principal); Z87.19 Personal history of other diseases of the digestive system
CPT/HCPCS: 36415; 80048; 85027

== ENCOUNTER → 2020-12-28 09:11 | Outpatient (CLI) | payer OTHER, SELFPAY ==
--- NOTE | ~2020-12-28 | XR_ITS ---
EXAMINATION: XR chest 2V DATE: 12/28/2020 09:24 INDICATION: Chronic respiratory failure, unspecified TECHNIQUE: Frontal and lateral views of the chest are obtained COMPARISON: 03/30/2020 FINDINGS: The lungs are free of acute opacities. Calcified pulmonary nodules are consistent with old granulomatous disease. There is no pleural effusion or pneumothorax. The cardiomediastinal silhouette is normal. There is moderate thoracic spondylosis. A single lead cardiac pacemaker of the left chest wall ends with lead in the right ventricle. IMPRESSION: 1. No acute cardiopulmonary abnormality. Reviewed, dictated and finalized at location A.
== END ==
PROVIDERS: PCP Internal Medicine; Visit Provider Internal Medicine
DX: J96.10 Chronic respiratory failure, unspecified whether with hypoxia or hypercapnia (principal)
CPT/HCPCS: 71046

== ENCOUNTER 2021-01-04 10:30 | Outpatient (CLI) | payer OTHER, SELFPAY ==
[2021-01-04 11:00] VITALS: PULSE 75; O2SAT 94
[2021-01-04 11:05] VITALS: PULSE 89; O2SAT 86
[2021-01-04 11:10] VITALS: PULSE 88; O2SAT 90
--- NOTE | 2021-01-04 11:20 | HOMEO2EVAL ---
Evaluation was performed at [facility] Home Oxygen Evaluation RC: Home Oxygen (O2) Evaluation Start: 01/04/21 11:16 Freq: Status: Active Protocol: RPE Activity Type Activity Date Activity User E-Sign Co-Sign Detail Recorded Client Recorded Date Recorded By Document 01/04/21 11:00 KMV [email or web address] 01/04/21 11:19 KMV Document 01/04/21 11:05 KMV [email or web address] 01/04/21 11:19 KMV Document 01/04/21 11:10 KMV [email or web address] 01/04/21 11:19 KMV 01/04/21 01/04/21 01/04/21 11:00 11:05 11:10 Home O2 Evaluation Test Phase Resting Exercise Exercise Oxygen Delivery Room Air Room Air Nasal Cannula Oxygen Flow Rate (L/min) 2 Pulse Oximetry (90-100 %) 94 86 L 90 Pulse Rate (60-100 beats/min) 75 89 88 Activity Tolerance Fair Rate of Perceived Exertion (PE) 15 Hard Ambulation Distance (feet) 300 Home Oxygen Evaluation Comments Pt failed 6 minute walk home O2 eval shows need for 2lpm with ambulation. Treatment Charges O2 Evaluation - Outpatient
== END 2021-01-04 10:31 | disposition home or self-care (01) ==
PROVIDERS: PCP Internal Medicine; Visit Provider Internal Medicine
DX: J96.10 Chronic respiratory failure, unspecified whether with hypoxia or hypercapnia (principal)
CPT/HCPCS: 94618